=== PATIENT | female | born 1960 | race Caucasian/White ===

== ENCOUNTER 2020-12-05 09:52 | Outpatient (REF) | payer OTHER, SELFPAY | END 2020-12-05 09:53 | disposition home or self-care (01) | LOC: HO.LAB 09:52 | PROVIDERS: Visit Provider Internal Medicine | DX: Z20.822 Contact with and (suspected) exposure to COVID-19 (principal) | CPT/HCPCS: 36415; C9803; U0003; U0005 ==

== ENCOUNTER 2021-01-18 10:15 | Outpatient (REF) | payer OTHER, SELFPAY ==
--- NOTE | ~2021-01-18 | MM_ITS ---
EXAMINATION: MM SCREENING DIGITAL BREAST TOMOSYNTHESIS, BILATERAL CLINICAL INFORMATION: Screening. Asymptomatic. The lifetime risk of breast cancer based on the Tyrer-Cuzick Model is 9%. COMPARISON: Mammography: 11/04/2019, 10/29/2018, 10/02/2017 TECHNIQUE: Digital breast tomosynthesis is performed in both the craniocaudal and mediolateral oblique views along with computer-aided detection (CAD). Synthesized 2D images are generated from the tomosynthesis. FINDINGS: There are scattered areas of fibroglandular density (ACR BI-RADS breast composition Category b). Parenchymal pattern is similar to prior studies. There is stable smooth nodularity again noted medial left breast and 2 adjacent nodules mid outer right breast. There is no developing density or interval mass or architectural abnormality. No abnormal calcifications. The axilla and skin contours are unremarkable. MM/MM tomosynthesis screening BI IMPRESSION: No significant changes from prior exams. ASSESSMENT: BI-RADS 2: Benign RECOMMENDATION: Routine annual mammography screening. This patient's information was entered into a reminder system with a target due date for their next mammogram.
== END 2021-01-18 10:16 | disposition home or self-care (01) ==
LOC: HO.MAMMO 10:15
PROVIDERS: PCP Internal Medicine; Visit Provider Internal Medicine
DX: Z12.31 Encounter for screening mammogram for malignant neoplasm of breast (principal)
CPT/HCPCS: 77063; 77067

== ENCOUNTER 2021-07-26 11:05 | Outpatient (REF) | payer OTHER, SELFPAY ==
[2021-07-26 13:38] LABS: Estimated Average Glucose 123 mg/dL; Hemoglobin A1c % 5.9 %
[2021-07-28 10:27] LABS: Vitamin B12 417 pg/mL (200-900)
[2021-07-31 16:50] LABS: Vitamin D 25-OH, D2 <4 ng/mL; Vitamin D 25-OH, D3 27 ng/mL; Vitamin D 25-OH, Total 27 ng/mL (30-100)
== END 2021-07-26 11:06 | disposition home or self-care (01) ==
LOC: HO.HMGCLDS 11:05
PROVIDERS: PCP Internal Medicine; Visit Provider Physician Assistant
DX: M79.601 Pain in right arm (principal); M79.602 Pain in left arm; R20.2 Paresthesia of skin
CPT/HCPCS: 36415; 82306; 82607; 83036

== ENCOUNTER 2021-09-02 06:33 | Outpatient (REF) | payer OTHER, SELFPAY ==
[2021-09-02 11:35] LABS: Hematocrit 41.9 % (37.0-47.0); Hemoglobin 14.1 g/dl (12.0-16.0); Mean Corpuscular HGB Conc 33.7 g/dl (31.0-35.0); Mean Corpuscular Hemoglobin 29.4 pg (27.0-33.0); Mean Corpuscular Volume 87.5 fL (80.0-98.0); Mean Platelet Volume 10.5 fL (9.4-12.3); Platelet Count 292 X10*3/uL (160-400); Red Blood Count 4.79 X10*6/uL (4.20-5.50); Red Cell Distribution Width 13.3 % (11.0-16.0); White Blood Count 6.3 X10*3/uL (4.8-10.8)
[2021-09-02 11:41] LABS: Appearance Urine HAZY; Color Urine YELLOW; Glucose Urine UA NEG (NEG); Leukocyte Esterase Urine 2+ (NEG); Nitrite Urine NEG (NEG); Specific Gravity - Urine 1.015 (1.005-1.025); Urine Blood NEG (NEG); Urine Ketones NEG (NEG); Urine Protein NEG (NEG-TRACE)
[2021-09-02 12:00] LABS: Alanine Aminotransferase 19 U/L (0-31); Albumin Level 3.9 g/dL (3.5-5.0); Alkaline Phosphatase 107 U/L (39-117); Anion Gap 12 (12-20); Aspartate Amino Transferase 19 U/L (5-31); Bilirubin Total 0.4 mg/dL (0.0-1.0); Blood Urea Nitrogen 11 mg/dL (9-16); Calcium 9.3 mg/dL (8.4-10.2); Carbon Dioxide 28 mmol/L (22-29); Chloride 105 mmol/L (96-108); Cholesterol 191 mg/dL; Estimated Glomerular Filt Rate > 60; Glucose Fasting 127 mg/dL (60-99); HDL Cholesterol 63 mg/dL; LDL Cholesterol Calculated 108 mg/dl; Potassium 4.3 mmol/L (3.3-5.1); Sodium 141 mmol/L (135-145); Total Protein 6.7 g/dL (6.5-8.0); Triglycerides 100 mg/dL
[2021-09-02 12:09] LABS: Renal Epithelial Cells Urine 1+ /LPF; Squamous Epithelial Cell Urine 1+ /LPF
[2021-09-02 12:22] LABS: Thyroid Stimulating Hormone 2.43 uIU/mL (0.32-4.0)
== END 2021-09-02 06:34 | disposition home or self-care (01) ==
LOC: HO.HMGCLDS 06:33
PROVIDERS: PCP Internal Medicine; Visit Provider Internal Medicine
DX: Z00.00 Encounter for general adult medical examination without abnormal findings (principal); I10 Essential (primary) hypertension
CPT/HCPCS: 36415; 80053; 80061; 81001; 84443; 85027

== ENCOUNTER 2021-09-05 16:08 | Outpatient (REF) | payer OTHER, SELFPAY ==
[2021-09-11 01:47] LABS: HPV mRNA E6/E7 Not Detected (Not Detected)
== END 2021-09-05 16:09 | disposition home or self-care (01) ==
LOC: HO.LNP 16:08
PROVIDERS: Visit Provider Internal Medicine
DX: Z12.4 Encounter for screening for malignant neoplasm of cervix (principal); I10 Essential (primary) hypertension; R73.9 Hyperglycemia, unspecified
CPT/HCPCS: 87624; 88142

== ENCOUNTER 2022-01-24 09:49 | Outpatient (REF) | payer OTHER, SELFPAY ==
--- NOTE | ~2022-01-24 | MM_ITS ---
EXAMINATION: MM SCREENING DIGITAL BREAST TOMOSYNTHESIS, BILATERAL CLINICAL INFORMATION: Screening. Asymptomatic. The lifetime risk of breast cancer based on the Tyrer-Cuzick Model is 6%. COMPARISON: Mammography: 01/18/2021, 11/04/2019, 10/29/2018 TECHNIQUE: Digital breast tomosynthesis is performed in both the craniocaudal and mediolateral oblique views along with computer-aided detection (CAD). Synthesized 2D images are generated from the tomosynthesis. FINDINGS: There are scattered areas of fibroglandular density (ACR BI-RADS breast composition Category b). Left breast has small stable nodular asymmetry mid inner breast on CC view. Right breast has a stable oval nodule central mid 9:00 position. Neither breast shows interval mass or architectural abnormality or developing density. No abnormal calcifications. The axilla and skin contours are unremarkable. MM/MM tomosynthesis screening BI IMPRESSION: No significant change from prior exams. ASSESSMENT: BI-RADS 2: Benign RECOMMENDATION: Routine annual mammography screening. This patient's information was entered into a reminder system with a target due date for their next mammogram.
== END 2022-01-24 09:50 | disposition home or self-care (01) ==
LOC: HO.MAMMO 09:49
PROVIDERS: Visit Provider Internal Medicine
DX: Z12.31 Encounter for screening mammogram for malignant neoplasm of breast (principal)
CPT/HCPCS: 77063; 77067

== ENCOUNTER 2022-02-27 11:26 | Outpatient (REF) | payer OTHER, SELFPAY ==
[2022-03-01 11:21] LABS: H Pylori Breath Test Positive (Negative)
== END 2022-02-27 11:27 | disposition home or self-care (01) ==
LOC: HO.LNP 11:26
PROVIDERS: PCP Internal Medicine; Visit Provider Nurse Practitioner Family
DX: K21.9 Gastro-esophageal reflux disease without esophagitis (principal); R14.0 Abdominal distension (gaseous); K59.01 Slow transit constipation; K64.9 Unspecified hemorrhoids; Z12.11 Encounter for screening for malignant neoplasm of colon; Z11.0 Encounter for screening for intestinal infectious diseases
CPT/HCPCS: 83013; 99202

== ENCOUNTER 2022-05-23 08:11 | Outpatient (REF) | payer OTHER, SELFPAY ==
[2022-05-23 11:04] LABS: Hematocrit 44.1 % (37.0-47.0); Hemoglobin 14.9 g/dl (12.0-16.0); Mean Corpuscular HGB Conc 33.8 g/dl (31.0-35.0); Mean Corpuscular Hemoglobin 29.5 pg (27.0-33.0); Mean Corpuscular Volume 87.3 fL (80.0-98.0); Mean Platelet Volume 12.1 fL (9.4-12.3); Platelet Count 162 X10*3/uL (160-400); Red Blood Count 5.05 X10*6/uL (4.20-5.50); Red Cell Distribution Width 13.3 % (11.0-16.0); White Blood Count 6.2 X10*3/uL (4.8-10.8)
[2022-05-23 11:16] LABS: Estimated Average Glucose 128 mg/dL; Hemoglobin A1c % 6.1 %
[2022-05-23 11:22] LABS: Alanine Aminotransferase 22 U/L (0-31); Albumin Level 4.1 g/dL (3.5-5.0); Alkaline Phosphatase 114 U/L (39-117); Anion Gap 11 (12-20); Aspartate Amino Transferase 19 U/L (5-31); Bilirubin Total 0.3 mg/dL (0.0-1.0); Blood Urea Nitrogen 12 mg/dL (9-16); Calcium 9.1 mg/dL (8.4-10.2); Carbon Dioxide 26 mmol/L (22-29); Chloride 105 mmol/L (96-108); Cholesterol 204 mg/dL; Estimated Glomerular Filt Rate > 60; Glucose Fasting 118 mg/dL (60-99); HDL Cholesterol 63 mg/dL; LDL Cholesterol Calculated 126 mg/dl; Potassium 4.4 mmol/L (3.3-5.1); Sodium 138 mmol/L (135-145); Total Protein 7.2 g/dL (6.5-8.0); Triglycerides 76 mg/dL
[2022-05-23 11:44] LABS: TSH reflex Free T4 1.05 uIU/mL (0.32-4.0)
[2022-05-23 11:45] LABS: Creatinine Urine 76.78 mg/dL; Microalbum/Creatinine Ratio Ur 6.5 ug/mg cr
== END 2022-05-23 08:12 | disposition home or self-care (01) ==
LOC: HO.HMGCLDS 08:11
PROVIDERS: PCP Internal Medicine; Visit Provider Internal Medicine
DX: Z00.00 Encounter for general adult medical examination without abnormal findings (principal); R73.9 Hyperglycemia, unspecified; I10 Essential (primary) hypertension
CPT/HCPCS: 36415; 80053; 80061; 82043; 83036; 84443; 85027

== ENCOUNTER 2022-08-18 09:44 | Outpatient (REF) | payer OTHER, SELFPAY ==
[2022-08-21 00:23] LABS: TS Negative Control Passed; TS Panel A 0; TS Panel B 0; TS Positive Control Passed; TSpotTB Negative (Negative)
== END 2022-08-18 09:45 | disposition home or self-care (01) ==
LOC: HO.HMGCLDS 09:44
PROVIDERS: PCP Internal Medicine; Visit Provider Internal Medicine
DX: Z11.1 Encounter for screening for respiratory tuberculosis (principal)
CPT/HCPCS: 36415; 86481

== ENCOUNTER 2022-08-27 14:54 | Outpatient (REF) | payer OTHER, SELFPAY ==
--- NOTE | ~2022-08-27 | XR_ITS ---
EXAMINATION: LUMBAR SPINE AND BILATERAL HIPS CLINICAL INFORMATION: Low back pain. COMPARISON: None. TECHNIQUE: Two views of the right and left hips. Three views of the lumbosacral spine. FINDINGS: LUMBOSACRAL SPINE: There are 5 [id number] lumbar vertebra. No acute fracture, spondylolisthesis, or spondylolysis is identified. There is mild marginal spurring seen at multiple levels. The disc spaces are generally maintained. There is some sclerosis about the sacroiliac joints bilaterally but without evidence of widening or fusion. Pedicles intact. No destructive bony lesions seen. There is some mild facet arthropathy seen at the L5-S1 level bilaterally. Two views of the right hip do not demonstrate any evidence of acute fracture or dislocation. There is some mild narrowing of the inferior joint space with some mild collar spurring being present. There is some spurring about the greater trochanter. No femoral head collapse or destructive bony lesion appreciated. Two views of the left hip do not demonstrate any evidence of acute fracture or dislocation. There is some mild collar spurring present. Minimal inferior joint space narrowing. There is some mild spurring about the greater trochanter. No destructive bony lesions are appreciated. Bone island is seen within the proximal left femoral shaft. XR/XR lumbar spine 2-3V IMPRESSION: Mild degenerative change of the lumbar spine without evidence of acute fracture, spondylolisthesis or spondylolysis. Mild degenerative changes of both hips.
--- NOTE | ~2022-08-27 | XR_ITS ---
EXAMINATION: LUMBAR SPINE AND BILATERAL HIPS CLINICAL INFORMATION: Low back pain. COMPARISON: None. TECHNIQUE: Two views of the right and left hips. Three views of the lumbosacral spine. FINDINGS: LUMBOSACRAL SPINE: There are 5 [id number] lumbar vertebra. No acute fracture, spondylolisthesis, or spondylolysis is identified. There is mild marginal spurring seen at multiple levels. The disc spaces are generally maintained. There is some sclerosis about the sacroiliac joints bilaterally but without evidence of widening or fusion. Pedicles intact. No destructive bony lesions seen. There is some mild facet arthropathy seen at the L5-S1 level bilaterally. Two views of the right hip do not demonstrate any evidence of acute fracture or dislocation. There is some mild narrowing of the inferior joint space with some mild collar spurring being present. There is some spurring about the greater trochanter. No femoral head collapse or destructive bony lesion appreciated. Two views of the left hip do not demonstrate any evidence of acute fracture or dislocation. There is some mild collar spurring present. Minimal inferior joint space narrowing. There is some mild spurring about the greater trochanter. No destructive bony lesions are appreciated. Bone island is seen within the proximal left femoral shaft. XR/XR hips REGINE min 3V IMPRESSION: Mild degenerative change of the lumbar spine without evidence of acute fracture, spondylolisthesis or spondylolysis. Mild degenerative changes of both hips.
== END 2022-08-27 14:55 | disposition home or self-care (01) ==
LOC: HO.HMGCX 14:54
PROVIDERS: PCP Internal Medicine; Visit Provider Internal Medicine
DX: M54.50 Low back pain, unspecified (principal)
CPT/HCPCS: 72100; 73522

== ENCOUNTER 2022-11-14 10:25 | Outpatient (REF) | payer OTHER, SELFPAY ==
[2022-11-14 11:09] LABS: MANUAL DIFF FLAG NO
[2022-11-14 11:15] LABS: Basophils Absolute Auto 0.1 X10*3/uL (0.0-0.2); Basophils Percent Auto 1.4 % (0-2); Eosinophils Absolute Auto 0.3 X10*3/uL (0.0-0.4); Eosinophils Percent Auto 4.4 % (0-4); Hematocrit 42.5 % (37.0-47.0); Hemoglobin 14.1 g/dl (12.0-16.0); Imm Gran Abs Auto 0.02 X10*3/uL (0.00-0.03); Imm Gran Pct Auto 0.3 % (0.0-0.4); Lymphocytes Absolute Auto 2.2 X10*3/uL (1.2-4.9); Lymphocytes Percent Auto 33.3 % (20-40); Mean Corpuscular HGB Conc 33.2 g/dl (31.0-35.0); Mean Corpuscular Hemoglobin 29.1 pg (27.0-33.0); Mean Corpuscular Volume 87.8 fL (80.0-98.0); Mean Platelet Volume 9.8 fL (9.4-12.3); Monocytes Absolute Auto 0.6 X10*3/uL (0.1-1.2); Monocytes Percent Auto 9.2 % (2-11); Neutrophils Absolute Auto 3.4 x10*3/uL (2.0-8.3); Neutrophils Percent Auto 51.4 % (45-73); Platelet Count 286 X10*3/uL (160-400); Red Blood Count 4.84 X10*6/uL (4.20-5.50); Red Cell Distribution Width 12.9 % (11.0-16.0); White Blood Count 6.5 X10*3/uL (4.8-10.8)
[2022-11-14 11:31] LABS: Estimated Average Glucose 131 mg/dL; Hemoglobin A1c % 6.2 %
[2022-11-14 12:47] LABS: Alanine Aminotransferase 23 U/L (0-31); Alkaline Phosphatase 114 U/L (39-117); Anion Gap 9 (12-20); Aspartate Amino Transferase 20 U/L (5-31); Bilirubin Total 0.4 mg/dL (0.0-1.0); Blood Urea Nitrogen 15 mg/dL (9-16); Calcium 9.4 mg/dL (8.4-10.2); Carbon Dioxide 31 mmol/L (22-29); Chloride 105 mmol/L (96-108); Cholesterol 204 mg/dL; Estimated Glomerular Filt Rate > 60; Glucose Fasting 107 mg/dL (60-99); HDL Cholesterol 69 mg/dL; LDL Cholesterol Calculated 118 mg/dl; Potassium 4.7 mmol/L (3.3-5.1); Sodium 140 mmol/L (135-145); Total Protein 6.9 g/dL (6.5-8.0); Triglycerides 85 mg/dL
[2022-11-14 13:54] LABS: Microalbum/Creatinine Ratio Ur 10.3 ug/mg cr
== END 2022-11-14 10:26 | disposition home or self-care (01) ==
LOC: HO.HMGCLDS 10:25
PROVIDERS: PCP Internal Medicine; Visit Provider Internal Medicine
DX: R73.9 Hyperglycemia, unspecified (principal)
CPT/HCPCS: 36415; 80053; 80061; 82043; 83036; 85025

== ENCOUNTER 2023-11-18 12:39 | Outpatient (AMB) | payer OTHER, SELFPAY ==
[2023-11-18 12:48] VITALS: BP 125/80; PULSE 65; O2SAT 98; BMI 38.3
--- NOTE | 2023-11-18 12:48 | MHC.PC.OV ---
Vital Signs 11/18/23 12:48 Height 5 ft 3 in Weight 216 lb BMI 38.3 BP 125/80 Blood Pressure Location Lt brachial Position Sitting Pulse 65 Pulse Source Pulse Oximeter Pulse Oximetry (%) 98 Oxygen Delivery Method Room Air Intake Visit Reasons: right arm pain Intake Note: Pt is [place] today for a sick visit. Pt c/o R shoulder pain that goes down her arm.. Allergies morphine Allergy (Unknown, Verified 11/18/23 12:49) Hives penicillin G Allergy (Unknown, Verified 11/18/23 12:49) Hives IV dye Allergy (Unknown, Uncoded 11/18/23 12:49) swelling Medication List - Last Reconciled 11/18/23 by Rakel Bojorquez MD albuterol sulfate 90 mcg/actuation 2 puffs inhalation Q6H bisacodyl (Dulcolax (bisacodyl)) 10 mg (2 x 5 mg) PO ONCE 1 day bismuth subsalicylate 2 tabs PO QID 14 days docusate sodium 100 mg PO BEDTIME hydrocortisone 2.5% (Proctosol HC) 1 appl DE BID-QID PRN losartan 100 mg PO DAILY methylcellulose (laxative) (Citrucel) 500 mg PO DAILY polyethylene glycol 3350 (Miralax) 238 grams PO ONCE Tobacco use date assessed: 11/18/23 Dental Screening Dental Screen Date: 11/18/23 Did you have a dental visit in the last 12 months?: Yes Did you have a dental problem in the last 6 months where you did not have access to dental care?: No Was dental information given to patient?: Patient has dentist HPI right arm pain HPI Details Pt presents for physical she complains of chronic ( for a few years) R shoulder pain getting worse for 2 months. She had an injury many years ago. The pain is worse when patient is trying to reach overheard or lift heavier objects. Hypertension is controlled on losartan. [facility] Medical History Hyperglycemia Lower back pain Paresthesia and pain of both upper extremities Normal Pap smear Mammogram normal Varicose veins of both lower extremities Annual physical exam Normal colonoscopy Asthma HTN (hypertension) Varicosities of leg Surgical History Hx of colonoscopy History of bilateral tubal ligation Hx of cholecystectomy Family History Father Afib HTN (hypertension) History of heart attack Hyperlipidemia Arthritis Mother Lung cancer Son No problems noted. Son No problems noted. Daughter No problems noted. Daughter No problems noted. Social History Housing: Apartment Alcohol intake: never Patient Tobacco Use Status: Never used Tobacco e-Cigarette/Vaping Use: Never Used Current occupational status: employed Cognitive needs: No Hearing needs: No Vision needs: Yes Questionnaire PHQ-9 Over the last 2 weeks, how often have you been bothered by any of the following problems? 1. Little interest or pleasure in doing things: not at all 2. Feeling down, depressed, or hopeless: not at all 3. Trouble falling or staying asleep, or sleeping too much: not at all 4. Feeling tired or having little energy: several days 5. Poor appetite or overeating: not at all 6. Feeling bad about yourself - or that you are a failure or have let yourself or your family down: not at all 7. Trouble concentrating on things, such as reading the newspaper or watching television: not at all 8. Moving or speaking so slowly that other people could have noticed. Or the opposite - being so fidgety or restless that you have been moving around a lot more than usual: not at all 9. Thoughts that you would be better off or of hurting yourself in some way: not at all Total score: 1 Depression Screening Interpretation: Negative Depression Screening Done: Yes Source: Developed by Drs. Kevin Lim, Geno Christopher, Donnell Yao and colleagues, with an educational cherri from [employer]. Thrive Questionnaire Date Thrive assessed: 11/18/23 I am a: Patient What is your living situation today?: I have a steady place to live Within the past 12 months, did the food you bought not last and you didn't have the money to get more?: Never true Within the past 12 months, did you worry whether your food would run out before you got money to buy more?: Never true Do you have trouble paying for medicines?: No Do you have trouble getting transportation to medical appointments?: No Do you have trouble paying your heating and electricity bill?: No Do you have trouble taking care of your child, family member or friend?: No Do you have trouble with day-to-day activities such as bathing, preparing meals, shopping, managing finances, etc.?: No Are you currently unemployed and looking for a job?: No Are you interested in more education?: No Please select the resources that you would like help with: None AUDIT C Alcohol Use Questionnaire (AUDIT-C) 1. How often do you have a drink containing alcohol?: Never 3. How often do you have six or more drinks on one occasion?: Never Total Score: 0 YANY-7 AMB Questionnaire YANY-7 Date YANY - 7 assessed: 11/18/23 Feeling nervous, anxious, or on edge: 0 = Not at all Not being able to stop or control worryin = Not at all Worrying too much about different things: 0 = Not at all Trouble relaxin = Not at all Being so restless that it is hard to sit still: 0 = Not at all Becoming easily annoyed or irritable: 0 = Not at all Feeling afraid as if something awful might happen: 0 = Not at all Total YANY-7 score (0-4 normal; 5-9 mild; 10-14 moderate; 15-21 severe): 0 Source: Developed by Drs. Kevin Lim, Geno Christopher, Donnell Yao and colleagues, with an educational cherri from [employer]. Review of Systems Const All systems reviewed & are unremarkable except as noted in HPI and below Reports no additional complaints Eyes Reports no additional complaints ENT Reports no additional complaints Card Reports no additional complaints Resp Reports no additional complaints GI Reports no additional complaints Reports no additional complaints Physical exam (Primary Care) Vital Signs: Last Vital Signs Pulse 65 11/18/23 12:48 BP 140/80 H 11/18/23 12:48 Pulse Ox 98 11/18/23 12:48 Oxygen Delivery Method Room Air 11/18/23 12:48 BMI result Body Mass Index 38.3 Tobacco/Smoking Status: Tobacco use Status Tobacco use date assessed 11/18/23 11/18/23 12:49 Patient Tobacco Use Status Never used Tobacco 11/18/23 12:49 e-Cigarette/Vaping Use Never Used 11/18/23 12:48 PHQ-9: PHQ-9 Score PHQ-9: Total score 1 11/18/23 14:55 Depression Screening Interpretation: Negative Thrive Assessment: Date of Thrive Assessment Date Thrive assessed 11/18/23 11/18/23 13:05 Const General: no acute distress HENMT Head: Yes normal to inspection Ears: hearing grossly normal bilaterally General nose exam: Normal external nose present Mouth: Normal oral and palatal mucosa present Throat: Yes posterior oropharynx normal Eyes General: appearance normal, both eyes and all related structures Neck Neck: Yes no lymphadenopathy and Yes supple Resp Effort & Inspection: normal respiratory effort Auscultation: clear to auscultation bilaterally Cardio Rhythm: regular rhythm Heart sounds: S1 normal heart sound present and S2 normal heart sound present GI Inspection: Yes normal to inspection Palpation (GI): Soft to palpation Percussion: Yes normal to percussion Auscultation: normal bowel sounds Extrem Other: This is a decreased range of motion of the right shoulder, anterior and supraspinatus tenderness, General: Yes no clubbing, cyanosis or edema Assessment and Plan Assessment & Plan (1) Right shoulder pain: Code(s): M25.511 - Pain in right shoulder Plan: For chronic shoulder pain x-ray and MRI to rule out supraspinatus tendon tear will be obtained. patient was given home essua-li-ffjosj exercises until results of the MRIs available. She will be referred to orthopedic surgeon (2) Rotator cuff arthropathy of right shoulder: Code(s): M12.811 - Other specific arthropathies, not elsewhere classified, right shoulder (3) HTN (hypertension): Code(s): I10 - Essential (primary) hypertension Plan: Continue losartan (4) Annual physical exam: Code(s): Z00.00 - Encounter for general adult medical examination without abnormal findings Plan: Well-balanced diet regular exercise discussed with the patient mammogram will be scheduled patient will call GI to schedule colonoscopy. (5) Hyperglycemia: Code(s): R73.9 - Hyperglycemia, unspecified Plan: ADA diet increase exercise weight loss discussed with the patient return for fasting blood work Orders: Orders XR shoulder RT min 2V Today M25.511 - Pain in right shoulder Complete Blood Count Auto Diff Today I10 - Essential (primary) hypertension, R73.9 - Hyperglycemia, unspecified, Z00.00 - Encounter for general adult medical examination without abnormal findings Hemoglobin A1c Today I10 - Essential (primary) hypertension, R73.9 - Hyperglycemia, unspecified, Z00.00 - Encounter for general adult medical examination without abnormal findings Lipid Panel Today I10 - Essential (primary) hypertension, R73.9 - Hyperglycemia, unspecified, Z00.00 - Encounter for general adult medical examination without abnormal findings Comprehensive Wilcox. Panel Fast Today I10 - Essential (primary) hypertension, R73.9 - Hyperglycemia, unspecified, Z00.00 - Encounter for general adult medical examination without abnormal findings Microalbumin, Random (w Creat) Today I10 - Essential (primary) hypertension, R73.9 - Hyperglycemia, unspecified, Z00.00 - Encounter for general adult medical examination without abnormal findings MR shoulder RT wo con Today I10 - Essential (primary) hypertension, M12.811 - Other specific arthropathies, not elsewhere classified, right shoulder, R73.9 - Hyperglycemia, unspecified, Z00.00 - Encounter for general adult medical examination without abnormal findings MM screening mammo BI Today I10 - Essential (primary) hypertension, R73.9 - Hyperglycemia, unspecified, Z00.00 - Encounter for general adult medical examination without abnormal findings, Z12.31 - Encounter for screening mammogram for malignant neoplasm of breast Referrals Orthopedics Referral M25.511 - Pain in right shoulder Medications: Refilled albuterol sulfate 90 mcg/actuation 2 puffs inhalation Q6H 18 grams 5RF losartan 100 mg PO DAILY 90 tabs 3RF Coding Level of Care Code Est Pt Prev Care 40-64y(98630) Diagnoses Right shoulder pain M25.511 Rotator cuff arthropathy of right shoulder M12.811 HTN (hypertension) I10 Annual physical exam Z00.00 Hyperglycemia R73.9
== END 2023-11-18 14:59 | disposition home or self-care (01) ==
PROVIDERS: PCP Internal Medicine; Visit Provider Internal Medicine
DX: Z00.00 Encounter for general adult medical examination without abnormal findings (principal); M25.511 Pain in right shoulder; M12.811 Other specific arthropathies, not elsewhere classified, right shoulder; I10 Essential (primary) hypertension; R73.9 Hyperglycemia, unspecified
CPT/HCPCS: 99396

== ENCOUNTER 2023-11-18 13:48 | Outpatient (REF) | payer OTHER, SELFPAY ==
--- NOTE | ~2023-11-18 | XR_ITS ---
EXAMINATION: XR SHOULDER, RIGHT CLINICAL INFORMATION: Pain. COMPARISON: None available. TECHNIQUE: Four views of the right shoulder. FINDINGS: Deformity along the superolateral aspect of the humeral head might represent sequela of a Hill-Sachs injury. No subluxation. 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 Visualized right-sided ribs and right lung are within normal limits. XR/XR shoulder RT min 2V IMPRESSION: 1. Deformity along the superolateral aspect of the humeral head might represent sequela of a Hill-Sachs injury. 2. 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
== END 2023-11-18 13:49 | disposition home or self-care (01) ==
LOC: HO.HMGCX 13:48
PROVIDERS: PCP Internal Medicine; Visit Provider Internal Medicine
DX: M25.511 Pain in right shoulder (principal)
CPT/HCPCS: 73030

== ENCOUNTER 2023-11-20 07:14 | Outpatient (REF) | payer OTHER, SELFPAY ==
[2023-11-20 11:29] LABS: MANUAL DIFF FLAG NO
[2023-11-20 11:42] LABS: Basophils Absolute Auto 0.1 X10*3/uL (0.0-0.2); Basophils Percent Auto 1.1 % (0-2); Eosinophils Absolute Auto 0.3 X10*3/uL (0.0-0.4); Eosinophils Percent Auto 4.8 % (0-4); Hematocrit 43.6 % (37.0-47.0); Hemoglobin 14.7 g/dl (12.0-16.0); Imm Gran Abs Auto 0.02 X10*3/uL (0.00-0.03); Imm Gran Pct Auto 0.3 % (0.0-0.4); Lymphocytes Absolute Auto 2.3 X10*3/uL (1.2-4.9); Mean Corpuscular HGB Conc 33.7 g/dl (31.0-35.0); Mean Corpuscular Hemoglobin 29.1 pg (27.0-33.0); Mean Corpuscular Volume 86.3 fL (80.0-98.0); Mean Platelet Volume 10.2 fL (9.4-12.3); Monocytes Absolute Auto 0.5 X10*3/uL (0.1-1.2); Monocytes Percent Auto 8.7 % (2-11); Neutrophils Percent Auto 48.1 % (45-73); Platelet Count 289 X10*3/uL (160-400); Red Blood Count 5.05 X10*6/uL (4.20-5.50); Red Cell Distribution Width 13.2 % (11.0-16.0); White Blood Count 6.2 X10*3/uL (4.8-10.8)
[2023-11-20 11:46] LABS: Estimated Average Glucose 126 mg/dL
[2023-11-20 11:52] LABS: Alanine Aminotransferase 18 U/L (0-31); Albumin Level 3.9 g/dL (3.5-5.0); Alkaline Phosphatase 117 U/L (39-117); Anion Gap 10 (12-20); Aspartate Amino Transferase 19 U/L (5-31); Bilirubin Total 0.5 mg/dL (0.0-1.0); Blood Urea Nitrogen 13 mg/dL (9-16); Calcium 9.5 mg/dL (8.4-10.2); Carbon Dioxide 27 mmol/L (22-29); Chloride 107 mmol/L (96-108); Cholesterol 196 mg/dL (<200); Estimated Glomerular Filt Rate > 60; Glucose Fasting 126 mg/dL (60-99); HDL Cholesterol 70 mg/dL (>40); LDL Cholesterol Calculated 107 mg/dL (<100); Potassium 3.8 mmol/L (3.3-5.1); Sodium 140 mmol/L (135-145); Total Protein 7.5 g/dL (6.5-8.0); Triglycerides 98 mg/dL (<150)
[2023-11-20 11:59] LABS: Creatinine Urine 126.55 mg/dL; Microalbum/Creatinine Ratio Ur 24.4 ug/mg cr (<30)
== END 2023-11-20 07:15 | disposition home or self-care (01) ==
LOC: HO.HMGCLDS 07:14
PROVIDERS: PCP Internal Medicine; Visit Provider Internal Medicine
DX: Z00.00 Encounter for general adult medical examination without abnormal findings (principal); I10 Essential (primary) hypertension; R73.9 Hyperglycemia, unspecified
CPT/HCPCS: 36415; 80053; 80061; 82043; 82570; 83036; 85025

== ENCOUNTER 2023-12-09 09:39 | Outpatient (AMB) | payer OTHER, SELFPAY ==
[2023-12-09 09:43] VITALS: BMI 38.3
--- NOTE | 2023-12-09 09:43 | A.OFFVIS_ITS ---
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 PCP gave at home exercises. Patient reports that she has had pain in the right shoulder for about 2 years now. Denies injury, numbness and tingling. She takes tylenol and ibuprofen for her pain which only helps temporarily. 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 She complains of pain with daily activity, which has been present for ~2 years now. She denies any prior treatment, has been performing at-home exercises, and finds limited relief from Ibuprofen & Tylenol. [facility] Medical History Hyperglycemia Lower back pain Paresthesia and pain of both upper extremities Normal Pap smear Mammogram normal Varicose veins of both lower extremities Annual physical exam Normal colonoscopy Asthma HTN (hypertension) Varicosities of leg Surgical History Hx of colonoscopy History of bilateral tubal ligation Hx of cholecystectomy Family History Father Afib HTN (hypertension) History of heart attack Hyperlipidemia Arthritis Mother Lung cancer Son No problems noted. Son No problems noted. Daughter No problems noted. Daughter No problems noted. Social History Housing: Apartment Alcohol intake: never Patient Tobacco Use Status: Never used Tobacco e-Cigarette/Vaping Use: Never Used Current occupational status: employed Cognitive needs: No Hearing needs: No Vision needs: Yes Review of Systems Const All systems reviewed & are unremarkable except as noted in HPI and below Physical Exam Vital Signs: BMI result Body Mass Index 38.3 Const General: no acute distress, alert and awake Orientation/consciousness: patient oriented x3 HEENT Head: Yes normocephalic and Yes atraumatic Eyes EOM: EOMs intact bilaterally Resp Effort & Inspection: normal respiratory effort and able to speak in complete sentences Cardio Jugular venous distension: no JVD Skin General skin exam: turgor normal Rashes: no rashes Neuro General: patient oriented x3 Extrem Other: 30/70/120/S1 +h/n 4+/5 EC Psych Appearance: grossly normal Affect: normal affect Attitude: cooperative Results Reviewed Results Reviewed: I personally reviewed relevant radiographs. AC joint OA ? [facility] Assessment & Plan Assessment & Plan (1) Rotator cuff arthropathy of right shoulder: Code(s): M12.811 - Other specific arthropathies, not elsewhere classified, right shoulder Plan: Has done PT and now with continued pain pool at night and with overhead activity. RTC not functioning properly. MRI to assess Plan Prepared for Roger Lopez MD by Neel Noguera, medical biller/coder, on 12/09/23 at 9:48 AM, EST. Orders: Orders PT Evaluation and Treatment Today M25.511 - Pain in right shoulder MR shoulder RT wo con Today M12.811 - Other specific arthropathies, not elsewhere classified, right shoulder Coding Level of Care Code New Pt Level 4 (78649) Diagnoses Rotator cuff arthropathy of right shoulder M12.811
== END 2023-12-09 11:02 | disposition home or self-care (01) ==
PROVIDERS: PCP Internal Medicine; Visit Provider Orthopaedic Surgery
DX: M12.811 Other specific arthropathies, not elsewhere classified, right shoulder (principal)
CPT/HCPCS: 99203

== ENCOUNTER → 2023-12-09 09:39 | Outpatient (BNVA) | payer OTHER, SELFPAY | PROVIDERS: PCP Internal Medicine; Visit Provider Orthopaedic Surgery | DX: M12.811 Other specific arthropathies, not elsewhere classified, right shoulder (principal) | CPT/HCPCS: 99202 ==

== ENCOUNTER 2023-12-31 18:43 | Outpatient (REF) | payer OTHER, SELFPAY ==
--- NOTE | ~2023-12-31 | MR_ITS ---
EXAMINATION: MR SHOULDER WITHOUT CONTRAST, RIGHT CLINICAL INFORMATION: Arthropathy not specified. Patient reports pain, limited range of motion. COMPARISON: None available. TECHNIQUE: MRI of the shoulder without contrast was performed on a high-field scanner. FINDINGS: ROTATOR CUFF: Mild supraspinatus and infraspinatus tendinosis. No focal tear is seen. Teres minor is intact. Mild subscapularis tendinosis. No muscle atrophy or fatty infiltration. BICEPS: Intact. CORACOACROMIAL ARCH: The undersurface of the acromion is flat with no subacromial spur. Mild acromioclavicular arthritis. Trace subacromial-subdeltoid bursitis. LABRUM/CAPSULE: Increased T2 signal anteroinferior labrum from degeneration plus/minus tear. Intact inferior capsule. GLENOHUMERAL JOINT/MARROW: No fracture. No aggressive marrow-replacing lesion. Small effusion. No axillary lymphadenopathy. MR/MR shoulder RT wo con IMPRESSION: 1. Mild supraspinatus, infraspinatus and subscapularis tendinosis. No focal rotator cuff tear is seen. 2. Anteroinferior labral degeneration plus/minus tear. 3. Mild acromioclavicular arthritis. Trace subacromial subdeltoid bursitis. 4. Small glenohumeral joint effusion.
== END 2023-12-31 18:44 | disposition home or self-care (01) ==
LOC: HO.MRI 18:43
PROVIDERS: PCP Internal Medicine; Visit Provider Orthopaedic Surgery
DX: M12.811 Other specific arthropathies, not elsewhere classified, right shoulder (principal)
CPT/HCPCS: 73221

== ENCOUNTER 2024-01-31 15:00 | Outpatient (AMB) | payer OTHER, SELFPAY ==
[2024-01-31 15:09] VITALS: BMI 38.3
--- NOTE | 2024-01-31 15:09 | A.OFFVIS_ITS ---
Intake Intake Visit Reasons: ov-rt shoulder mri review Intake Note: MR/MR shoulder RT wo con IMPRESSION: 1. Mild supraspinatus, infraspinatus and subscapularis tendinosis. No focal rotator cuff tear is seen. 2. Anteroinferior labral degeneration plus/minus tear. 3. Mild acromioclavicular arthritis. Trace subacromial subdeltoid bursitis. 4. Small glenohumeral joint effusion. Allergies morphine Allergy (Unknown, Verified 12/09/23 09:46) Hives penicillin G Allergy (Unknown, Verified 12/09/23 09:46) Hives IV dye Allergy (Unknown, Uncoded 12/09/23 09:46) swelling [facility] Medical History Hyperglycemia Lower back pain Paresthesia and pain of both upper extremities Normal Pap smear Mammogram normal Varicose veins of both lower extremities Annual physical exam Normal colonoscopy Asthma HTN (hypertension) Varicosities of leg Surgical History Hx of colonoscopy History of bilateral tubal ligation Hx of cholecystectomy Family History Father Afib HTN (hypertension) History of heart attack Hyperlipidemia Arthritis Mother Lung cancer Son No problems noted. Son No problems noted. Daughter No problems noted. Daughter No problems noted. Social History Housing: Apartment Alcohol intake: never Patient Tobacco Use Status: Never used Tobacco e-Cigarette/Vaping Use: Never Used Current occupational status: employed Cognitive needs: No Hearing needs: No Vision needs: Yes Coding
--- NOTE | 2024-01-31 15:09 | MHC.OFFVIS ---
Intake Vital Signs 01/31/24 15:09 Height 5 ft 3 in Weight 216 lb BMI 38.3 Intake Visit Reasons: ov-rt shoulder mri review Intake Note: Lesly is a 63 year old right hand dominate female who presents today for a MRI review of her right shoulder. Patient reports her symptoms have improved up until yesterday. She is experiencing more pain while lifting and raising her arms above her head. Accompanied by: Spouse Allergies morphine Allergy (Unknown, Verified 01/31/24 15:23) Hives penicillin G Allergy (Unknown, Verified 01/31/24 15:23) Hives IV dye Allergy (Unknown, Uncoded 12/09/23 09:46) swelling HPI ov-rt shoulder mri review HPI Details Lesly is a 63 year old right hand dominate female who presents today for a MRI review of her right shoulder. Patient reports her symptoms have improved up until yesterday. She is experiencing more pain while lifting and raising her arms above her head. [facility] Medical History Hyperglycemia Lower back pain Paresthesia and pain of both upper extremities Normal Pap smear Mammogram normal Varicose veins of both lower extremities Annual physical exam Normal colonoscopy Asthma HTN (hypertension) Varicosities of leg Surgical History Hx of colonoscopy History of bilateral tubal ligation Hx of cholecystectomy Family History Father Afib HTN (hypertension) History of heart attack Hyperlipidemia Arthritis Mother Lung cancer Son No problems noted. Son No problems noted. Daughter No problems noted. Daughter No problems noted. Social History Housing: Apartment Alcohol intake: never Patient Tobacco Use Status: Never used Tobacco e-Cigarette/Vaping Use: Never Used Current occupational status: employed Cognitive needs: No Hearing needs: No Vision needs: Yes Physical Exam Vital Signs: BMI result Body Mass Index 38.3 Extrem Other: Mildly positive Grigsby and Neer Negative empty can 45/90/130/L5 Results Reviewed Results Reviewed: I personally reviewed the MR images. 1. Mild supraspinatus, infraspinatus and subscapularis tendinosis. No focal rotator cuff tear is seen. 2. Anteroinferior labral degeneration plus/minus tear. 3. Mild acromioclavicular arthritis. Trace subacromial subdeltoid bursitis. 4. Small glenohumeral joint effusion. Assessment & Plan Assessment & Plan (1) Rotator cuff tendinitis: Code(s): M75.80 - Other shoulder lesions, unspecified shoulder Plan: I reviewed MRI and at this point, I do not recommend intervention. Discussed therapy and injections but at this point she will let me know if she gets worse. Coding Level of Care Code Est Pt Level 3 (36127) Diagnoses Rotator cuff tendinitis M75.80
== END 2024-01-31 15:37 | disposition home or self-care (01) ==
LOC: HO.HOS 15:00
PROVIDERS: PCP Internal Medicine; Visit Provider Orthopaedic Surgery
DX: M75.80 Other shoulder lesions, unspecified shoulder (principal)
CPT/HCPCS: 99213

== ENCOUNTER → 2024-01-31 15:00 | Outpatient (BNVA) | payer OTHER, SELFPAY | PROVIDERS: PCP Internal Medicine; Visit Provider Orthopaedic Surgery | DX: M75.81 Other shoulder lesions, right shoulder (principal) | CPT/HCPCS: 99212 ==

== ENCOUNTER 2024-03-18 09:37 | Outpatient (REF) | payer OTHER, SELFPAY | END 2024-03-18 09:38 | disposition home or self-care (01) | LOC: HO.MAMMO 09:37 | PROVIDERS: PCP Internal Medicine; Visit Provider Internal Medicine | DX: Z12.31 Encounter for screening mammogram for malignant neoplasm of breast (principal) | CPT/HCPCS: 77063; 77067 ==

== ENCOUNTER → 2024-03-18 10:00 | Outpatient (BNV) | payer SELFPAY | PROVIDERS: PCP Internal Medicine; Visit Provider Radiology Diagnostic Radiology | DX: Z12.31 Encounter for screening mammogram for malignant neoplasm of breast (principal) | CPT/HCPCS: 77063; 77067 ==

== ENCOUNTER 2024-12-05 12:33 | Outpatient (AMB) | payer OTHER, SELFPAY ==
--- OUTSIDE RECORDS SUMMARY | 2024-12-05 13:04 | XMS_ITS | Clinical Summary ---
Author Organization [facility] ity Address [address] [place] [address] Care Team Providers Care Cat Tender Name Role Phone Unavailable Primary Care Provider Unavailabl e Surgical History Surgery Date Site/Laterality Comments TUBAL LIGATION PROCEDURE: HISTORICAL TUBAL LIGATION CHOLECYSTECTOMY PROCEDURE: HISTORICAL CHOLECYSTECTOMY OTHER SURGICAL HISTORY 04/29/09 PROCEDURE: HISTORICAL D&C; COMMENT: Hysteroscopic resection submucous fibroid Medical History Medical History Date Comments Essential hypertension, benign 08/24/2007 D X:Essential hypertension, benign Iron deficiency anemia 06/27/2009 DX:Iron d eficiency anemia Family History Medical History Relation Name Comments Glaucoma Brother 1 Cataracts Father Heart attack Father in 70's Hypertension Father Heart attack Maternal Grandfather Heart attack Maternal Grandmother Diabetes Mother Hypertension Mother Lung cancer Mother exp second hand smoke Other: liver cancer Other 1 PGM Other: pancreatic cancer Other 2 mom Blindness Neg Hx Breast cancer Neg Hx Cervical cancer Neg Hx Colon cancer Neg Hx Macular degeneration Neg Hx Ovarian cancer Neg Hx Strabismus Neg Hx Relation Name Status Comments Brother 1 Alive Brother 2 Alive Brother 3 Alive Father Alive htn high choles terol cad/ [place] (70s) Maternal Grandfather Maternal Grandmother Mother Alive dm Other 1 Other 2 Other 3 Sister Alive Social History Tobacco Use Types Packs/Day Years Used Date Smoking Tobacco: Never Smokeless Tobacco: Never Alcohol Use Standard Drinks/Week Comments No 0 (1 standard drink = 0.6 oz pur e alcohol) Sex and Gender Information Value Date Recorded Sex Assigned at Not on file Gender Identity Not on file Sexual Orientation Not on file Obstetrics History Plan of Treatment Health Maintenance Due Date Last Done Comments Breast Cancer Screening 1962 DTaP,Tdap,and Td Vaccines (1 - Tdap) 1981 Cervical Cancer Screening: P ap Smear 1983 Zoster Vaccines (1 of 2) 2012 Colorectal Cancer Screening: Colonoscopy 10/04/2022 Depression Screening 10/04/2022 HIV Screening 10/04/2022 Hepatitis C Screening 10/04/2022 Social Influencers of Health Screening 10/04/2022 COVID-19 Vaccine ( - 2023-2 5 season) 2024 Influenza Vaccine (#1) 2024 RSV Immunization Patients 60 + Years Old (1 - 1-dose 75+ series) 2037 HIB Vaccines Aged Out No longer eligi ble based on patient's age to complete this topic HPV Vaccines Aged Out No longer eligi ble based on patient's age to complete this topic Hepatitis A Vaccines Aged Out No long er eligible based on patient's age to complete this topic Hepatitis B Vaccines Aged Out No long er eligible based on patient's age to complete this topic IPV Vaccines Aged Out No longer eligi ble based on patient's age to complete this topic MMR Vaccines Aged Out No longer eligi ble based on patient's age to complete this topic Meningococcal ACWY Vaccine Aged Out N o longer eligible based on patient's age to complete this topic Pneumococcal Vaccine: Pediat rics (0 to 5 Years) and At-Risk Patients (6 to 64 Years) Aged Out No longer eligible b ased on patient's age to complete this topic RSV Immunization Patients Un sofi 20 months Aged Out No longer eligible b ased on patient's age to complete this topic Varicella Vaccines Aged Out No longer eligible based on patient's age to complete this topic
--- NOTE | 2024-12-05 13:34 | A.OFFPC_ITS ---
Vital Signs 12/05/24 13:35 Height 5 ft 3 in Weight 207 lb BMI 36.7 BP 126/80 Blood Pressure Location Lt brachial Position Sitting Respiration 18 Pulse 61 Pulse Source Pulse Oximeter Temp 97.9 F Temp Source Oral Pulse Oximetry (%) 98 Oxygen Delivery Method Room Air Intake Visit Reasons: Annual PE Intake Note: Pt is here today for PE. Allergies morphine Allergy (Unknown, Verified 12/05/24 13:35) Hives penicillin G Allergy (Unknown, Verified 12/05/24 13:35) Hives IV dye Allergy (Unknown, Uncoded 12/05/24 13:35) swelling Medication List - Last Reconciled 12/05/24 by Rakel Bojorquez MD albuterol sulfate 90 mcg/actuation 2 puffs inhalation Q6H losartan 100 mg PO DAILY Tobacco use date assessed: 12/05/24 Dental Screening Dental Screen Date: 12/05/24 Did you have a dental visit in the last 12 months?: Yes Did you have a dental problem in the last 6 months where you did not have access to dental care?: No Was dental information given to patient?: Patient has dentist HPI Annual PE HPI Details Pt presents for PE. Pt c/o L anterior thigh pain worse at night for 1 month. PFSH Medical History Hyperglycemia Lower back pain Paresthesia and pain of both upper extremities Normal Pap smear Mammogram normal Varicose veins of both lower extremities Annual physical exam Normal colonoscopy Asthma HTN (hypertension) Varicosities of leg Surgical History Hx of colonoscopy History of bilateral tubal ligation Hx of cholecystectomy Family History Father Afib HTN (hypertension) History of heart attack Hyperlipidemia Arthritis Mother Lung cancer Son No problems noted. Son No problems noted. Daughter No problems noted. Daughter No problems noted. Social History Housing: Apartment Alcohol intake: never Patient Tobacco Use Status: Never used Tobacco e-Cigarette/Vaping Use: Never Used service: No Current occupational status: employed Cognitive needs: No Hearing needs: No Vision needs: Yes Questionnaire PHQ-9 Over the last 2 weeks, how often have you been bothered by any of the following problems? 1. Little interest or pleasure in doing things: not at all 2. Feeling down, depressed, or hopeless: not at all 3. Trouble falling or staying asleep, or sleeping too much: not at all 4. Feeling tired or having little energy: not at all 5. Poor appetite or overeating: not at all 6. Feeling bad about yourself - or that you are a failure or have let yourself or your family down: not at all 7. Trouble concentrating on things, such as reading the newspaper or watching television: not at all 8. Moving or speaking so slowly that other people could have noticed. Or the opposite - being so fidgety or restless that you have been moving around a lot more than usual: not at all 9. Thoughts that you would be better off or of hurting yourself in some way: not at all Total score: 0 Depression Screening Interpretation: Negative Depression Screening Done: Yes 71876 - PHQ-9 Billing: Yes Source: Developed by Drs. Kevin Lim, Geno Christopher, Donnell Yao and colleagues, with an educational cherri from [employer]. Thrive Questionnaire Date Thrive assessed: 12/05/24 I am a: Patient What is your living situation today?: I have a steady place to live Within the past 12 months, did the food you bought not last and you didn't have the money to get more?: Sometimes True Within the past 12 months, did you worry whether your food would run out before you got money to buy more?: Sometimes True Do you have trouble paying for medicines?: No Do you have trouble getting transportation to medical appointments?: No Do you have trouble paying your heating and electricity bill?: Yes Do you have trouble taking care of your child, family member or friend?: No Do you have trouble with day-to-day activities such as bathing, preparing meals, shopping, managing finances, etc.?: No Are you currently unemployed and looking for a job?: No Are you interested in more education?: No Please select the resources that you would like help with: None Currently or been in a relationship where the following occur: No concerns reported THRIVE Score: 3 AUDIT C Alcohol Use Questionnaire (AUDIT-C) 1. How often do you have a drink containing alcohol?: Never 3. How often do you have six or more drinks on one occasion?: Never Total Score: 0 YANY-7 AMB Questionnaire YANY-7 Date YANY - 7 assessed: 12/05/24 Feeling nervous, anxious, or on edge: 0 = Not at all Not being able to stop or control worryin = Not at all Worrying too much about different things: 0 = Not at all Trouble relaxin = Not at all Being so restless that it is hard to sit still: 0 = Not at all Becoming easily annoyed or irritable: 0 = Not at all Feeling afraid as if something awful might happen: 0 = Not at all Total YANY-7 score (0-4 normal; 5-9 mild; 10-14 moderate; 15-21 severe): 0 Source: Developed by Drs. Kevin Lim, Geno Christopher, Donnell Yao and colleagues, with an educational cherri from [employer]. YANY-7 Assessment Billing YANY-7 Assessment Tool: YANY-7 Assessment 88242 Review of Systems Const All systems reviewed & are unremarkable except as noted in HPI and below Reports no additional complaints Eyes Reports no additional complaints ENT Reports no additional complaints Card Reports no additional complaints Resp Reports no additional complaints GI Reports no additional complaints Reports no additional complaints Physical exam (Primary Care) Vital Signs: Last Vital Signs Temp 97.9 F 12/05/24 13:35 Pulse 61 12/05/24 13:35 Resp 18 12/05/24 13:35 BP 126/80 12/05/24 13:35 Pulse Ox 98 12/05/24 13:35 Oxygen Delivery Method Room Air 12/05/24 13:35 BMI result Body Mass Index 36.7 Tobacco/Smoking Status: Tobacco use Status Tobacco use date assessed 12/05/24 12/05/24 13:37 Patient Tobacco Use Status Never used Tobacco 12/05/24 13:37 e-Cigarette/Vaping Use Never Used 12/05/24 13:37 PHQ-9: PHQ-9 Score PHQ-9: Total score 0 12/05/24 13:37 Depression Screening Interpretation: Negative Thrive Assessment: Date of Thrive Assessment Date Thrive assessed 12/05/24 12/05/24 13:37 Currently or been in a relationship where the following occur: No concerns reported Const General: no acute distress HENMT Head: Yes normal to inspection Ears: hearing grossly normal bilaterally Face and sinus: Yes normal facial exam Mouth: Normal oral and palatal mucosa present Throat: Yes posterior oropharynx normal Eyes General: appearance normal, both eyes and all related structures Neck Neck: Yes no lymphadenopathy and Yes supple Resp Effort & Inspection: normal respiratory effort Auscultation: clear to auscultation bilaterally Cardio Rhythm: regular rhythm Heart sounds: S1 normal heart sound present and S2 normal heart sound present GI Inspection: Yes normal to inspection Palpation (GI): Soft to palpation Percussion: Yes normal to percussion Auscultation: normal bowel sounds Extrem Other: There is reproducible tenderness over left trochanteric bursa, there is slightly decreased range of motion left hip, no soft tissue swelling General: Yes no clubbing, cyanosis or edema Coding Level of Care Code Est Pt Prev Care 40-64y(29615) Diagnoses HTN (hypertension) I10 Annual physical exam Z00.00 Hyperglycemia R73.9 Mammogram normal Additional Codes YANY-7 Assessment Billing - YANY-7 Assessment Tool: YANY-7 Assessment [id number] ([id number]) PHQ-9 - 70439 - PHQ-9 Billing: Yes ([id number]) Assessment & Plan Assessment & Plan (1) HTN (hypertension): Code(s): I10 - Essential (primary) hypertension Category: Medical Plan: Continue losartan (2) Annual physical exam: Code(s): Z00.00 - Encounter for general adult medical examination without abnormal findings Category: Medical Plan: Well-balanced diet regular physical activity weight loss discussed with the patient she will return for fasting blood work. Patient is up-to-date with mammogram and Pap by paper sales representative. She will be referred to GI for colonoscopy (3) Hyperglycemia: Code(s): R73.9 - Hyperglycemia, unspecified Category: Medical Plan: ADA diet discussed with the patient check A1c (4) Mammogram normal: Comment: 09/2024 negative Category: Medical Plan: Up-to-date with mammogram Orders: Orders Comprehensive Street. Panel Fast Today I10 - Essential (primary) hypertension, R73.9 - Hyperglycemia, unspecified, Z00.00 - Encounter for general adult medical examination without abnormal findings Complete Blood Count Auto Diff Today I10 - Essential (primary) hypertension, R73.9 - Hyperglycemia, unspecified, Z00.00 - Encounter for general adult medical examination without abnormal findings TSH reflex Free T4 Today I10 - Essential (primary) hypertension, R73.9 - Hyperglycemia, unspecified, Z00.00 - Encounter for general adult medical examination without abnormal findings Hemoglobin A1c 1 Year I10 - Essential (primary) hypertension, R73.9 - Hyperglycemia, unspecified, Z00.00 - Encounter for general adult medical examination without abnormal findings Complete Blood Count Auto Diff 1 Year I10 - Essential (primary) hypertension, R73.9 - Hyperglycemia, unspecified, Z00.00 - Encounter for general adult medical examination without abnormal findings TSH reflex Free T4 1 Year I10 - Essential (primary) hypertension, R73.9 - Hyperglycemia, unspecified, Z00.00 - Encounter for general adult medical examination without abnormal findings Lipid Panel Today I10 - Essential (primary) hypertension, R73.9 - Hyperglycemia, unspecified, Z00.00 - Encounter for general adult medical examination without abnormal findings Hemoglobin A1c Today I10 - Essential (primary) hypertension, R73.9 - Hypergl ycemia, unspecified, Z00.00 - Encounter for general adult medical examination without abnormal findings Microalbumin, Random (w Creat) Today I10 - Essential (primary) hypertension, R73.9 - Hyperglycemia, unspecified, Z00.00 - Encounter for general adult medical examination without abnormal findings Comprehensive Street. Panel Fast 1 Year I10 - Essential (primary) hypertension, R73.9 - Hyperglycemia, unspecified, Z00.00 - Encounter for general adult medical examination without abnormal findings Lipid Panel 1 Year I10 - Essential (primary) hypertension, R73.9 - Hyperglycemia, unspecified, Z00.00 - Encounter for general adult medical examination without abnormal findings Microalbumin, Random (w Creat) 1 Year I10 - Essential (primary) hypertension, R73.9 - Hyperglycemia, unspecified, Z00.00 - Encounter for general adult medical examination without abnormal findings Referrals Gastroenterology Referral Z00.00 - Encounter for general adult medical examination without abnormal findings
[2024-12-05 13:35] VITALS: BP 126/80; PULSE 61; RESP 18; TEMP 36.6; O2SAT 98; BMI 36.7
== END 2024-12-05 14:21 | disposition home or self-care (01) ==
PROVIDERS: PCP Internal Medicine; Visit Provider Internal Medicine
DX: I10 Essential (primary) hypertension (principal); Z00.00 Encounter for general adult medical examination without abnormal findings; R73.9 Hyperglycemia, unspecified

== ENCOUNTER → 2024-12-05 12:33 | Outpatient (BNVA) | payer OTHER, SELFPAY | PROVIDERS: PCP Internal Medicine; Visit Provider Internal Medicine | DX: Z00.01 Encounter for general adult medical examination with abnormal findings (principal); I10 Essential (primary) hypertension; R73.9 Hyperglycemia, unspecified | CPT/HCPCS: 96127; 99396 ==

== ENCOUNTER 2024-12-09 07:59 | Outpatient (REF) | payer OTHER, SELFPAY ==
--- OUTSIDE RECORDS SUMMARY | 2024-12-09 08:02 | XMS_ITS | Clinical Summary ---
Author Organization [facility] ity Address [address] [place] [address] Care Team Providers Care Boiler Tenders Supervisor Name Role Phone Unavailable Primary Care Provider [...] Father Alive htn high choles terol cad/ [place] (70s) Maternal Grandfather Maternal Grandmother Mother Alive [...]
[2024-12-09 11:15] LABS: MANUAL DIFF FLAG NO
[2024-12-09 11:17] LABS: Basophils Absolute Auto 0.1 X10*3/uL (0.0-0.2); Eosinophils Absolute Auto 0.3 X10*3/uL (0.0-0.4); Eosinophils Percent Auto 5.6 % (0-4); Hematocrit 42.7 % (37.0-47.0); Hemoglobin 14.4 g/dl (12.0-16.0); Imm Gran Abs Auto 0.03 X10*3/uL (0.00-0.03); Imm Gran Pct Auto 0.5 % (0.0-0.4); Lymphocytes Absolute Auto 2.3 X10*3/uL (1.2-4.9); Mean Corpuscular HGB Conc 33.7 g/dl (31.0-35.0); Mean Corpuscular Hemoglobin 29.1 pg (27.0-33.0); Mean Corpuscular Volume 86.4 fL (80.0-98.0); Monocytes Absolute Auto 0.5 X10*3/uL (0.1-1.2); Neutrophils Absolute Auto 2.9 x10*3/uL (2.0-8.3); Neutrophils Percent Auto 47.9 % (45-73); Platelet Count 302 X10*3/uL (160-400); Red Blood Count 4.94 X10*6/uL (4.20-5.50); Red Cell Distribution Width 13.2 % (11.0-16.0); White Blood Count 6.1 X10*3/uL (4.8-10.8)
[2024-12-09 11:32] LABS: Estimated Average Glucose 131 mg/dL; Hemoglobin A1C 164.4686 umol/L; Hemoglobin A1c % 6.2 % (<6.0); Total Hemoglobin (HGBA1C) 3759.9235 umol/L
[2024-12-09 11:34] LABS: Microalbumin Urine < 5.0 mg/L
[2024-12-09 12:06] LABS: Alanine Aminotransferase 29 U/L (0-31); Albumin Level 3.8 g/dL (3.5-5.0); Alkaline Phosphatase 121 U/L (39-117); Anion Gap 10 (12-20); Aspartate Amino Transferase 26 U/L (5-31); Bilirubin Total 0.4 mg/dL (0.0-1.0); Blood Urea Nitrogen 16 mg/dL (9-16); Calcium 9.2 mg/dL (8.4-10.2); Carbon Dioxide 27 mmol/L (22-29); Chloride 108 mmol/L (96-108); Cholesterol 164 mg/dL (<200); Estimated Glomerular Filt Rate > 60; Glucose Fasting 111 mg/dL (60-99); HDL Cholesterol 54 mg/dL (>40); LDL Cholesterol Calculated 91 mg/dL (<100); Potassium 4.4 mmol/L (3.3-5.1); Sodium 141 mmol/L (135-145); Total Protein 7.2 g/dL (6.5-8.0); Triglycerides 98 mg/dL (<150)
== END 2024-12-09 08:00 | disposition home or self-care (01) ==
LOC: HO.HMGCLDS 07:59
PROVIDERS: PCP Internal Medicine; Visit Provider Internal Medicine
DX: Z00.00 Encounter for general adult medical examination without abnormal findings (principal); I10 Essential (primary) hypertension; R73.9 Hyperglycemia, unspecified
CPT/HCPCS: 36415; 80053; 80061; 82570; 83036; 84443; 85025

== ENCOUNTER 2025-03-24 09:35 | Outpatient (REF) | payer OTHER, SELFPAY | END 2025-03-24 09:36 | disposition home or self-care (01) | LOC: HO.MAMMO 09:35 | PROVIDERS: PCP Internal Medicine; Visit Provider Internal Medicine | DX: Z12.31 Encounter for screening mammogram for malignant neoplasm of breast (principal) | CPT/HCPCS: 77063; 77067 ==

== ENCOUNTER → 2025-03-24 10:00 | Outpatient (BNV) | payer OTHER, SELFPAY | PROVIDERS: PCP Internal Medicine; Visit Provider Internal Medicine | DX: Z12.31 Encounter for screening mammogram for malignant neoplasm of breast (principal) | CPT/HCPCS: 77063; 77067 ==

== ENCOUNTER 2025-06-15 11:23 | Outpatient (AMB) | payer OTHER, SELFPAY ==
--- NOTE | 2025-06-15 11:25 | A.OFFVIS_ITS ---
Vital Signs 06/15/25 11:43 Height 5 ft 3 in Weight 208 lb BMI 36.8 BP 148/92 H Blood Pressure Location Rt brachial Position Sitting Pulse 60 Pulse Source Pulse Oximeter Pulse Oximetry (%) 98 Oxygen Delivery Method Room Air Intake Visit Reasons: Colonoscopy Scrn Intake Note: NEW PATIENT for recall colo, 2nd lifetime. Last @ age 52 per PCP (@ [facility] [place]) Chief Complaint; C.O. moderate to severe constipation, B/L LQ abd pain which pt reports seems to be associated with their constipation. Pt denies any additional sx or concerns at this time. Crew Boat Operator Required: Yes Crew Boat Operator Services: Crew Boat Operator Present Crew Boat Operator Name: [id number] Information Interpreted: clinical only Accompanied by: Self / Same As Patient Allergies morphine Allergy (Unknown, Verified 12/05/24 13:35) Hives penicillin G Allergy (Unknown, Verified 12/05/24 13:35) Hives IV dye Allergy (Unknown, Uncoded 12/05/24 13:35) swelling HPI HPI Colonoscopy Scrn: Details: LAST VISIT: Screen for colon cancer Patient denies any cardiac or respiratory symptoms.? Occasional symptoms of postprandial acid reflux, bloating. Reports to have also constipation. Patient states that sometimes she might have blood on the tissue when she wipes. Denies any issues with anesthesia in the past.? Denies any history of sleep apnea.? No history infectious diseases in the past or present.? Not on any anticoagulation therapy.? No family or personal history of colon cancer or polyps.? Last colonoscopy when patient was 52 that was normal. Patient denies melena, hematochezia, unintentional weight loss or ribbon like stools.? Discussed at length the pre-procedure,? prep, diet & medications as well as what to expect prior, during and after the procedure.?? Stressed the importance of good bowel prep. ?Recommended the use of Vaseline or Calmoseptine OTC & baby wipes with bowel movements to promote comfort.? ?Patient verbalizes understanding and agrees to plan of care.? She was given the opportunity to ask questions and all questions answered.? We will see her after the procedure.? Constipation Patient can take docusate sodium and Senokot. She can also take Citrucel. Patient reports that she moves her bowels almost every day, however she does not feel like she empties them completely. Patient will be going for colonoscopy 1 make sure that she moves her bowels better. GERD (gastroesophageal reflux disease) Patient is not on any PPIs will do H pylori breath testing today and treat empirically positive. Patient will also be started on pantoprazole. Patient reports that her symptoms are usually postprandially. Discussed with patient avoiding dietary triggers and late night snacking. Discussed with patient the importance of staying upright for minimum 3 hours after meals. I will see patient after colonoscopy. Hemorrhoid Occasional rectal discomfort when patient has a bowel movement. Patient denies melena, hematochezia, unintentional weight loss or ribbon like stools. Occasional blood in his stool when she wipes. Start Proctosol on as needed basis. Patient will be going for colonoscopy. Plan Orders Orders H Pylori Breath Test 02/27/22 Medications New bisacodyl (Dulcolax (bisacodyl)) take 2 tabs at noon the day before your colonoscopy 10 mg (2 x 5 mg) PO ONCE 1 day 2 tabs 0RF Z12.11 docusate sodium 100 mg PO BEDTIME 90 caps 3RF K59.00 methylcellulose (laxative) (Citrucel) take it with full glass of water 500 mg PO DAILY 90 tabs 2RF K59.00 sennosides (Natural Senna Laxative) 17.2 mg (2 x 8.6 mg) PO BEDTIME 180 tabs 3RF constipation K59.00 hydrocortisone 2.5% (Proctosol HC) 1 appl [place] BID-QID PRN 30 grams 2RF hemorrhoids K64.9 pantoprazole take one tablet half an hour before breakfast 40 mg PO DAILY 90 tabs 2RF K21.9 polyethylene glycol 3350 (Miralax) As directed by gastroenterology department at [facility] 238 grams PO ONCE 238 grams 0RF Z12.11 TODAY'S VISIT Patient is here today to discuss going for colonoscopy. Last seen was in January of 2022. Patient came to the office discuss going for colonoscopy. Patient reports that she did not go syncope as she had trouble with her insurance. Patient had a normal colonoscopy at age of 52. Last visit we tested her for H pylori. Patient was positive and we treated her empirically. Patient reports that she has no epigastric pain or discomfort. Reports abdominal bloating and constipation. Patient states that she was on senna, however no longer has the medication. She states that was helpful but she still felt like she was not emptying her bowels well. Patient denies any issues with anesthesia. Nothing changed since last time she was seen in this office. Denies any cardiac or respiratory symptoms. [facility] Medical History Hyperglycemia Lower back pain Paresthesia and pain of both upper extremities Normal Pap smear Mammogram normal Varicose veins of both lower extremities Annual physical exam Normal colonoscopy Asthma HTN (hypertension) Varicosities of leg Surgical History Hx of colonoscopy History of bilateral tubal ligation Hx of cholecystectomy Family History Father Afib HTN (hypertension) History of heart attack Hyperlipidemia Arthritis Mother Lung cancer Son No problems noted. Son No problems noted. Daughter No problems noted. Daughter No problems noted. Social History Housing: Apartment Alcohol intake: never Patient Tobacco Use Status: Never used Tobacco e-Cigarette/Vaping Use: Never Used service: No Current occupational status: employed Cognitive needs: No Hearing needs: No Vision needs: Yes Review of Systems Const Denies weight gain and Denies weight loss ENT Reports no additional complaints, Denies dysphagia and Denies odynophagia Card Reports no additional complaints Resp Reports no additional complaints GI Denies abdominal pain, Denies belching, Denies melena, Denies bloating, Denies change in bowel habits, Denies dysphagia, Denies excessive flatus, Denies dyspepsia, Denies heartburn, Denies diarrhea, Denies loose stools, Denies nause a, Denies odynophagia and Denies vomiting Musc Reports no additional complaints Neuro Reports no additional complaints Psych Reports no additional complaints Endo Reports no additional complaints Physical Exam Vital Signs: Last Vital Signs Pulse 60 06/15/25 11:43 BP 148/92 H 06/15/25 11:43 Pulse Ox 98 06/15/25 11:43 Oxygen Delivery Method Room Air 06/15/25 11:43 BMI result Body Mass Index 36.8 Const General: healthy appearing, no acute distress and well developed Nutritional Appearance: well nourished Orientation/consciousness: patient oriented x3 Resp Effort & Inspection: normal respiratory effort, able to speak in complete sentences, no tracheal deviation and symmetric chest movement Auscultation: clear to auscultation bilaterally Cardio Rate: regular rate GI Inspection: Yes normal to inspection, No distended and Yes obesity Palpation (GI): Soft to palpation, not firm, nontender and No hepatosplenomegaly present Auscultation: normal bowel sounds General: Yes no CVA tenderness Back/Spine/Pelvis Back: no CVA tenderness Skin General skin exam: elasticity normal, turgor normal and dry skin Neuro General: patient oriented x3 Psych Appearance: grossly normal Mental Status: mental status grossly normal Assessment & Plan Assessment & Plan (1) Gastroesophageal reflux disease: Comment: s/p H pylori tx 02/20 Code(s): K21.9 - Gastro-esophageal reflux disease without esophagitis Category: Medical Qualifiers: Esophagitis presence: esophagitis presence not specified Qualified Code(s): K21.9 - Gastro-esophageal reflux disease without esophagitis (2) Normal colonoscopy: Comment: at 52 Category: Medical (3) Screen for colon cancer: Code(s): Z12.11 - Encounter for screening for malignant neoplasm of colon (4) Constipation: Code(s): K59.00 - Constipation, unspecified Qualifiers: Constipation type: slow transit constipation Qualified Code(s): K59.01 - Slow transit constipation Plan Patient reports right and left lower quadrant pain. Reports to be constipated. Will start her on Dulcolax. Occasional blood in his stool after straining. Patient will start Proctosol. Message sent to surgical schedulers to book upper endoscopy and colonoscopy for patient. Upper endoscopy as patient has a history of H pylori. Currently she is not having any epigastric pain, however occasional acid reflux depending on what she eats. Patient will return in 2 months to re-evaluate. She is agreeable to this plan and verbalizes understanding of instructions. She was given the opportunity to ask questions and all questions answered. Thank you for allowing me to participate in her care Medications: New bisacodyl (Dulcolax (bisacodyl)) 10 mg (2 x 5 mg) PO BEDTIME 180 tabs 4RF hydrocortisone 2.5% (Proctosol HC) 1 appl [place] BID-QID PRN 30 grams 2RF hemorrhoids K64.9 - Unspecified hemorrhoids polyethylene glycol 3350 (Miralax) As directed by gastroenterology department at [facility] 238 grams PO ONCE 238 grams 0RF Z12.11 - Encounter for screening for malignant neoplasm of colon polyethylene glycol 3350 (Miralax) As directed by gastroenterology department at [facility] 238 grams PO ONCE 238 grams 0RF Z12.11 - Encounter for screening for malignant neoplasm of colon Coding Level of Care Code New Pt Level 3 (19812) Diagnoses Gastroesophageal reflux disease, unspecified whether esophagitis present K21.9 Esophagitis presence: esophagitis presence not specified Normal colonoscopy Screen for colon cancer Z12.11 Slow transit constipation K59.01 Constipation type: slow transit constipation Time Spent (min) 40 Comment 30 minutes spent with patient and additional 10 minutes spent reviewing her records
--- OUTSIDE RECORDS SUMMARY | 2025-06-15 11:26 | XMS_ITS | Clinical Summary ---
[facility] Address [address] [place] [address] Care Team Providers Care Administrative Office Assistant Name Role Phone Unavailable Primary Care Provider [...] Father Alive htn high choles terol cad/ [place] (70s) Maternal Grandfather Maternal Grandmother Mother Alive dm Other 1 Other 2 Other 3 Sister Alive Social History Tobacco Use Types Packs/Day Years Used Date Smoking Tobacco: Never Smokeless Tobacco: Never Alcohol Use Standard Drinks/Week Comments No 0 (1 standard drink = 0.6 oz pur e alcohol) Comments Unknown Sex and Gender Information Value Date Recorded Sex Assigned at Not on file Legal Sex Female 2:26 AM EST Gender Identity Not on file Sexual Orientation Not on file Obstetrics History Plan of Treatment Health Maintenance Due Date Last Done Comments Breast Cancer Screening 1962 DTaP,Tdap,and Td Vaccines (1 - Tdap) 1981 Cervical Cancer Screening: P ap Smear 1983 Pneumococcal Vaccine: 50+ Ye ars (1 of 1 - PCV) 2012 Zoster Vaccines (1 of 2) 2012 Colorectal Cancer Screening: Colonoscopy 10/04/2022 HIV Screening 10/04/2022 Hepatitis C Screening 10/04/2022 Social Influencers of Health Screening 10/04/2022 COVID-19 Vaccine ( - 2023-2 5 season) 2024 Depression Screening 11/01/2024 Influenza Vaccine (#1) 2025 RSV Immunization Adult Patie nts (1 - 1-dose 75+ series) 2037 HIB [...] patient's age to complete this topic Meningococcal B Vaccine Aged Out No l onger eligible based on patient's age to complete this topic RSV Immunization Patients Un sofi 20 months Aged Out No longer eligible b ased on patient's age to complete this topic Varicella Vaccines Aged Out No longer eligible based on patient's age to complete this topic
[2025-06-15 11:43] VITALS: BP 148/92; PULSE 60; O2SAT 98; BMI 36.8
== END 2025-06-15 12:08 | disposition home or self-care (01) ==
LOC: HO.HGI 11:24
PROVIDERS: PCP Internal Medicine; Visit Provider Nurse Practitioner Family
DX: Z01.818 Encounter for other preprocedural examination (principal); Z12.11 Encounter for screening for malignant neoplasm of colon; K21.9 Gastro-esophageal reflux disease without esophagitis; K59.01 Slow transit constipation
CPT/HCPCS: 99203

== ENCOUNTER → 2025-06-15 11:23 | Outpatient (BNVA) | payer OTHER, SELFPAY | PROVIDERS: PCP Internal Medicine; Visit Provider Nurse Practitioner Family | DX: Z01.818 Encounter for other preprocedural examination (principal); K21.9 Gastro-esophageal reflux disease without esophagitis; K59.01 Slow transit constipation | CPT/HCPCS: 99202 ==

== ENCOUNTER 2025-09-04 10:42 | Outpatient (AMB) | payer OTHER, SELFPAY ==
--- OUTSIDE RECORDS SUMMARY | 2025-06-21 07:30 | XMS_ITS | Continuity of Care Document ---
Author Organization [facility] Address [address] [place] [address] Phone Care Team Providers Care Supervisor Drying And Winding Name Role Phone Jewel DESAI, RVT, RPVI, Kevin Unavailable U navailable Allergies, Adverse Reactions, Alerts Substance Reaction Status Criticality Iodinated Contrast Media Active No Information morphine Active No Information PENICILLIN Active No Information Procedures Procedure Date Duplex Scan-extrem Veins; Uni/ CT & [place] A Inj Scleros Solut; Mx Veins 1- CT & MA A Ultrason Guidan Needle Bx-rad- CT & MA A Office/Outpt E&M Established 15 Mins- CT & MA Duplex Scan-extrem Veins; Comp- CT & MA Duplex Scan-extrem Veins; Uni/ CT & MA J Inj Scleros Solut; Mx Veins 1- CT & MA J Ultrason Guidan Needle Bx-rad- CT & MA J Duplex Scan-extrem Veins; Uni/ CT & MA J Inj Scleros Solut; Mx Veins 1- CT & MA J Ultrason Guidan Needle Bx-rad- CT & MA J Duplex Scan-extrem Veins; Uni/ CT & MA J Endovenous Laser, 1st Vein- CT & MA Duplex Scan-extrem Veins; Uni/ CT & MA J Duplex Scan-extrem Veins; Uni/ CT & MA M Inj Scleros Solut; Mx Veins 1- CT & MA M Ultrason Guidan Needle Bx-rad- CT & MA M Duplex Scan-extrem Veins; Uni/ CT & MA M Inj Scleros Solut; Mx Veins 1- CT & MA M Ultrason Guidan Needle Bx-rad- CT & MA M Endovenous Laser, 1st Vein- CT & MA Offic Cons New/estab Mod-hi 80- CT & MA Surgical Stockings CVR Reveal Thigh High Duplex Scan-extrem Veins; Comp- CT & MA Advance Directives Directive Yes / No Effective Date File Name No Information Encounters Encounter Description Practice Location Reason(s) For Visit Diagnoses Date Provider Providers Copied on Encounter [facility] MD ROJAS, [address] [place] [address] Dr Lujan [address]Patrick [place], [id number], [place] tel:[phone] [facility] - [facility] Encounter for follow-up examination after completed treatment for conditions other than malignant neoplasmChronic venous hypertension (idiopathic) with other complications of right lower extremity 5 Jewel DESAI RVT, KARIS Brown. [address] [place] [address], [place], [place], [id number] , [place]. [phone] Referring Provider: Rakel Zepeda, [address] [place] [address], [address]. tel:[phone] [facility], [address] [place] [address] Dr Lujan 1000[address]Patrick [place], [id number], [place] tel:[phone] [facility] of right lower extremity with other complications 5 Jewel DESAI RVT, KARIS Brown. [address] [place] [address], [place], [place], [id number] , [place]. [phone] Referring Provider: Rakel Zepeda, [address] [place] [address], [address]. tel:[phone] Office/Outpt E&M Established 15 Mins- CT & [place] [facility] MD ROJAS, [address] [place] [address] Dr Lujan 1000SuPatrick dodson [place], [id number], [place] tel:[phone] [facility] Localized edemaLymphedema , not elsewhere classifiedPruri tus, unspecifiedHere ditary lymphedemaCramp and spasmRestless legs syndromeVenous insufficiency (chronic) (peripheral)Ess ential (primary) hypertension 5 Jewel DESAI RVT, RPVI Robert. [address] [place] [address], Suite [facility], [place], [id number] , [place]. [phone] [facility] MD ROJAS, [address] [place] [address] Dr Lujan 1000SuPatrick dodson [place], [id number], [place] tel:[phone] [facility] Chronic venous hypertension (idiopathic) with other complications of bilateral lower extremity 5 Jewel DESAI RVT, KARIS Brown. [address] [place] [address], [place] [address], [place], [id number] , [place]. tel:[phone] Referring Provider: Kevin Holloway MD, RVT, KARIS, [address] [place] [address], [place], [address] . tel:[phone] [facility], [address] [place] [address] Dr Lujan 1000SuPatrick dodson [place], [id number], [place] tel:[phone] [facility] Encounter for follow-up examination after completed treatment for conditions other than malignant neoplasmPain in left lower leg 5 Jewel DESAI RVT, RPVI Robert. [address] [place] [address], [place] [address], [place], [id number] , [place]. tel:[phone] Referring Provider: Kevin Holloway MD, RVT, KARIS, [address] [place] [address], [place], [address] . tel:[phone] [facility], [address] [place] [address] Dr Lujan 1000Suite Patrick Russo [place], [id number], [place] tel:[phone] [facility] - [place] - [facility] Varicose veins of left lower extremity with other complications 5 Jewel DESAI RVT, KARIS Brown. [address] [place] [address], [place] [address], [place], [place], [id number] , [place]. [phone] Referring Provider: Rakel Bojorquez MD S, [address] [place] [address], [place], [address]. tel:[phone] [facility], [address] [place] [address] [address]Patrick [place], [id number], [place] tel:[phone] [facility] [place] [facility] Encounter for follow-up examination after completed treatment for conditions other than malignant neoplasmVaricos e veins of left lower extremity with pain 5 Jewel DESAI RVT, KARIS Brown. [address] [place] [address], [place], [place], [id number] , [place]. [phone] Referring Provider: Rakel Bojorquez MD S, [address] [place] [address], [place], [address]. tel:[phone] [facility], [address] [place] [address] [address]Suite Patrick Russo MD, [id number], [place] tel:[phone] [facility] - [place] - [facility] Varicose veins of left lower extremity with other complications 0 5 Jewel DESAI RVT, RPVI Robert. [address] [place] [address], [place], [place], [id number] , [place]. tel:[phone] Referring Provider: Rakel Bojorquez MD S, [address] [place] [address], [place], [address]. tel:[phone] [facility], [address] [place] [address] Dr Lujan 1000Suite Patrick Russo [place], [id number], [place] tel:[phone] [facility] - [place] [facility] Encounter for follow-up examination after completed treatment for conditions other than malignant neoplasmVaricos e veins of left lower extremity with pain True-0 5 Jewel DESAI RVT, KARIS Brown. [address] [facility] [address], [address], [place], [id number] , [place]. tel:[phone] Referring Provider: Rakel Bojorquez MD S, [address] [place] [address], [place], [address]. tel:[phone] [facility] [facility], [address] [place] [address] [address]Suite [place] Russo [place], [id number], [place] [phone] [facility] - [facility] Varicose veins of left lower extremity with other complications True-0 5 Jewel DESAI RVT, KARIS Brown. [address] [facility] [facility] [address], [address], [place], [id number] , [place]. tel:[phone] Referring Provider: Rakel Bojorquez MD S, [address] [place] [address], [place], [address]. tel:[phone] [facility] [facility], [address] [place] [address] [address]Suite Patrick Russo [place], [id number], [place] [phone] [facility] - [facility] Encounter for follow-up examination after completed treatment for conditions other than malignant neoplasmVaricos e veins of right lower extremity with pain True-0 5 Jewel DESAI RVT, KARIS Brown. [address] [facility], [address], [place], [id number] , [place]. tel:[phone] Referring Provider: Rakel Bojorquez MD S, [address] [place] [address], [place], [address]. tel:[phone] [place] [facility], [address] [place] [address] Dr Lujan 1000Suite 1000Patrick [place], [id number], [place] tel:[phone] [facility] - [place] Encounter for follow-up examination after completed treatment for conditions other than malignant neoplasmVaricos e veins of right lower extremity with pain 0 5 Jewel DESAI RVT, KARIS Brown. [address] [facility], [address], [place], [place], [id number] , [place]. tel:[phone] Referring Provider: Kevin Holloway MD, RVT, RPVI, [address] [place] [address] [address], [facility] [place], [address] . tel:[phone] [facility], [address] [place] [address] Tai 1000Suite 1000Patrick [place], [id number], [place] [phone] [facility] - [place] Varicose veins of right lower extremity with other complications 5 Jewel DESAI RVT, RPVI Robert. [address] [place] [address], [address], [place], [id number] , [place]. tel:[phone] Referring Provider: Kevin Holloway MD, RVT, RPVI, [address] [place] [address] [address], [place], [address] . tel:[phone] [facility], [address] [place] [address] 1000Suite 1000Patrick [place], [id number], [place] [phone] [facility] [place] Encounter for follow-up examination after completed treatment for conditions other than malignant neoplasmChronic venous hypertension (idiopathic) with other complications of right lower extremity 5 Jewel DESAI RVT, RPVI Robert. [address] [place] [address], [place], [id number] , [place]. tel:[phone] Referring Provider: Rakel Bojorquez MD S, [address] [place] [address], [place], [address]. tel:[phone] [facility], [address] [place] [address] 1000Suite 1000Patrick [place], [id number], [place] [phone] [facility] [place] Varicose veins of right lower extremity with other complications 5 Jewel DESAI RVT, RPVI Robert. [address] [place] [address], [address], [facility] [place], [id number] , [place]. [phone] Referring Provider: Rakel Bojorquez MD S, [address] [place] [address], [place], [address]. tel:[phone] [facility], [address] [place] [address] Dr Lujan 1000Suite 1000Patrick [place], [id number], [place] tel:[phone] [facility] - [place] - [place] No Information 5 Jewel DESAI RVT, KARIS Brown. [address] [facility], [facility] [address], [facility] [place], [id number] , [place]. tel:[phone] [place] [facility], [address] [place] [address] Dr Lujan 1000Suite 1000Patrick [place], [id number], [place] tel:[phone] [facility] - [facility] Varicose veins of right lower extremity with other complications 5 Jewel DESAI RVT, KARIS Brown. [address] [place] [address], [address], [place], [place], [id number] , [place]. tel:[phone] Referring Provider: Rakel Bojorquez MD S, [address] [facility] [address] [place], [address]. tel:[phone] Offic Cons New/estab Mod-hi 80- CT & [place] [facility], [address] [place] [address] Dr Lujan 1000Suite Patrick Russo [place], [id number], [place] tel:[phone] [facility] - [facility] Chronic venous hypertension (idiopathic) without complications of bilateral lower extremityRestle ss legs syndromeEssenti al (primary) hypertensionLym phedema, not elsewhere classifiedPruri tus, unspecifiedPain in left legHereditary lymphedemaCramp and spasmLocalized edema 5 Jewel DESAI RVT, KARIS Brown. [address] [facility], [address], [place], [id number] , [place]. tel:[phone] [facility], [address] [place] [address] Dr Lujan 1000Suite Patrick Russo [place], [id number], [place] tel:[phone] [facility] - [facility] Chronic venous hypertension (idiopathic) with other complications of bilateral lower extremity 5 Jewel DESAI RVT, RPVI Robert. [address] [facility], [address], [place], [id number] , [place]. tel:[phone] Referring Provider: Kevin Holloway MD, RVT, RPVI, [address] [facility] [address], [facility] [place], [address] . tel:[phone] Family History Family Member Type Diagnosis Age At Onset No Information Payers Payer name Insurance type Covered libertarian ID Navya rojo(s) [facility] [employer] CI [id number] Social History Type Description Quantity Date Captured Comments Sex Female Smoking Status No Information Chief Complaint And Reason For Visit No Information Reason For Referral Reason For Referral No Information Plan Of Treatment Date Type Action Status Goal Diet education completed Goal Diet education completed Referral Ordered: Weight management: Referral to physician timeframe: 3 Months (related to Body mass index (BMI) 36.0-36.9, adult) ordered Referral Ordered: Weight management: Referral to physician timeframe: 3 Months (related to Body mass index (BMI) 36.0-36.9, adult) ordered Appointment Lesly Parry BOOKED Appointment Lesly Parry BOOKED History Of Present Illness Encounter Date Complaint History Of Prese nt Illness No Information Functional Status Date Functional Assessmen t No Information Instructions Date Instruction Additional Infor tegan Pre and post instruc tions reviewed and provided Related to Localized edema Patient education booklet given Related to Localized edema Lifestyle education Related to B foster mass index (BMI) 36.0-36.9, adult Giving Encouragement to exercise Related to Body mass index (BMI) 36.0-36.9, adult Diet education Related to Body mass index (BMI) 36.0-36.9, adult Pre and post instruc tions reviewed and provided Related to Chronic venous hypertension (idiopathic) without complications of bilateral lower extremity Patient education booklet given Related to Chronic venous hypertension (idiopathic) without complications of bilateral lower extremity Lifestyle education Related to B foster mass index (BMI) 36.0-36.9, adult Giving Encouragement to exercise Related to Body mass index (BMI) 36.0-36.9, adult Diet education Related to Body mass index (BMI) 36.0-36.9, adult Assessments Type Assessment Date No Information Patient Care Teams Name Effective Dates (start - stop) Status Members No Information
--- NOTE | 2025-09-04 10:42 | A.OFFVIS_ITS ---
Vital Signs 09/04/25 10:49 Height 5 ft 3 in Weight 207 lb BMI 36.7 BP 128/92 H Blood Pressure Location Rt brachial Position Sitting Pulse 60 Pulse Source Pulse Oximeter Pulse Oximetry (%) 98 Oxygen Delivery Method Room Air Intake Visit Reasons: discuss colo Intake Note: Est pt for mgmt of GERD + CIC. Rediscuss colo/egd. CC: Pt denies any new GI concerns or sx at this time. Automobile Body Repair Chief Required: Yes Automobile Body Repair Chief Services: Automobile Body Repair Chief Present Automobile Body Repair Chief Name: Lashanda [id number] Information Interpreted: clinical only Accompanied by: Self / Same As Patient Allergies morphine Allergy (Unknown, Verified 12/05/24 13:35) Hives penicillin G Allergy (Unknown, Verified 12/05/24 13:35) Hives IV dye Allergy (Unknown, Uncoded 12/05/24 13:35) swelling HPI HPI discuss colo: Details: LAST VISIT: Gastroesophageal reflux disease Normal colonoscopy Screen for colon cancer Constipation Plan Patient reports right and left lower quadrant pain. Reports to be constipated. Will start her on Dulcolax. Occasional blood in his stool after straining. Patient will start Proctosol. Message sent to surgical schedulers to book upper endoscopy and colonoscopy for patient. Upper endoscopy as patient has a history of H pylori. Currently she is not having any epigastric pain, however occasional acid reflux depending on what she eats. Patient will return in 2 months to re- evaluate. She is agreeable to this plan and verbalizes understanding of instructions. She was given the opportunity to ask questions and all questions answered. ? Thank you for allowing me to participate in her care New bisacodyl (Dulcolax (bisacodyl)) 10 mg (2 x 5 mg) PO BEDTIME 180 tabs 4RF hydrocortisone 2.5% (Proctosol HC) 1 appl PA BID-QID PRN 30 grams 2RF hemorrhoids K64.9 polyethylene glycol 3350 (Miralax) As directed by gastroenterology department at [facility] 238 grams PO ONCE 238 grams 0RF Z12.11 polyethylene glycol 3350 (Miralax) As directed by gastroenterology department at [facility] 238 grams PO ONCE 238 grams 0RF Z12.11 TODAY'S VISIT Patient is here today for follow-up and to discuss going for colonoscopy. Will send a message to surgical schedule to bulk patient and will order the procedure. Patient will go for colonoscopy only as she has not had acid reflux since last time we saw her in the office. Symptoms have been suppressed with diet. Patient reports that now that she is moving her bowels better she has been feeling better. Patient takes Dulcolax every night before bedtime. 1-2 bowel movements daily. Denies melena, hematochezia, unintentional weight loss or ribbon like stools. Patient denies any dyspepsia, dysphagia or odynophagia. Denies any issues with anesthesia in the past. No history of sleep apnea. Not on any anticoagulation medication. Patient denies any cardiac or respiratory symptoms [facility] Medical History Hyperglycemia Lower back pain Paresthesia and pain of both upper extremities Normal Pap smear Mammogram normal Varicose veins of both lower extremities Annual physical exam Normal colonoscopy Asthma HTN (hypertension) Varicosities of leg Surgical History Hx of colonoscopy History of bilateral tubal ligation Hx of cholecystectomy Family History Father Afib HTN (hypertension) History of heart attack Hyperlipidemia Arthritis Mother Lung cancer Son No problems noted. Son No problems noted. Daughter No problems noted. Daughter No problems noted. Social History Housing: Apartment Alcohol intake: never Patient Tobacco Use Status: Never used Tobacco e-Cigarette/Vaping Use: Never Used service: No Current occupational status: employed Cognitive needs: No Hearing needs: No Vision needs: Yes Review of Systems Const Denies weight gain and Denies weight loss ENT Reports no additional complaints, Denies dysphagia and Denies odynophagia Card Reports no additional complaints Resp Reports no additional complaints GI Denies abdominal pain, Denies belching, Denies melena, Denies bloating, Denies change in bowel habits, Reports constipation (Improved), Denies dysphagia, Denies excessive flatus, Denies dyspepsia, Denies heartburn, Denies diarrhea, Denies loose stools, Denies nausea, Denies odynophagia and Denies vomiting Musc Reports no additional complaints Neuro Reports no additional complaints Psych Reports no additional complaints Endo Reports no additional complaints Physical Exam Vital Signs: Last Vital Signs Pulse 60 09/04/25 10:49 BP 128/92 H 09/04/25 10:49 Pulse Ox 98 09/04/25 10:49 Oxygen Delivery Method Room Air 09/04/25 10:49 BMI result Body Mass Index 36.7 Const General: healthy appearing, no acute distress and well developed Nutritional Appearance: well nourished Orientation/consciousness: patient oriented x3 Resp Effort & Inspection: normal respiratory effort, able to speak in complete sentences, no tracheal deviation and symmetric chest movement Auscultation: clear to auscultation bilaterally Cardio Rate: regular rate GI Inspection: Yes normal to inspection, No distended and Yes obesity Palpation (GI): Soft to palpation, not firm, nontender and No hepatosplenomegaly present Auscultation: normal bowel sounds General: Yes no CVA tenderness Back/Spine/Pelvis Back: no CVA tenderness Skin General skin exam: elasticity normal, turgor normal and dry skin Neuro General: patient oriented x3 Psych Appearance: grossly normal Mental Status: mental status grossly normal Assessment & Plan Assessment & Plan (1) Normal colonoscopy: Comment: at 52 Category: Medical (2) Encounter for screening for malignant neoplasm of colon: Code(s): Z12.11 - Encounter for screening for malignant neoplasm of colon Plan Patient will continue taking Dulcolax daily. Increase fluid intake and activity to promote bowel motility. What to expect before during and after procedure discussed with patient. Stressed the importance of good bowel prep and clear liquid diet day before procedure. Patient will follow-up with us after the procedure. Patient is agreeable to plan plan of care and verbalizes understanding of instructions. She was given the opportunity to ask questions and all questions answered. Thank you for allowing me to participate in her care Orders: Referrals GI Procedure Notification Z12.11 - Encounter for screening for malignant neoplasm of colon Coding Level of Care Code Est Pt Level 3 (20777) Diagnoses Normal colonoscopy Encounter for screening for malignant neoplasm of colon Z12.11 Time Spent (min) 30 Comment 20 minutes spent with patient and additional 10 minutes spent reviewing her records
[2025-09-04 10:49] VITALS: BP 128/92; PULSE 60; O2SAT 98; BMI 36.7
--- OUTSIDE RECORDS SUMMARY | 2025-09-04 12:42 | XMS_ITS | Clinical Summary ---
[facility] Address [address] [place] [address] Care Team Providers Care Ash Kier Boiler Name Role Phone Unavailable Primary Care Provider [...] Father Alive htn high choles terol cad/ OR (70s) Maternal Grandfather Maternal Grandmother Mother Alive [...] Last Done Comments Breast Cancer Screening 1962 Colorectal Cancer Screening: Colonoscopy 1962 DTaP,Tdap,and Td Vaccines (1 - Tdap) 1981 Cervical Cancer Screening: P ap Smear 1983 Pneumococcal Vaccine: 50+ Ye ars (1 of 1 - PCV) 2012 Zoster Vaccines (1 of 2) 2012 HIV Screening 10/04/2022 Hepatitis C Screening 10/04/2022 Social Influencers of Health Screening 10/04/2022 Depression Screening 11/01/2024 COVID-19 Vaccine (1 - 2023-2 5 season) 2025 Influenza Vaccine (#1) 2025 RSV Immunization Adult [...]
== END 2025-09-04 12:10 | disposition home or self-care (01) ==
LOC: HO.HGI 10:42
PROVIDERS: PCP Internal Medicine; Visit Provider Nurse Practitioner Family
DX: Z01.818 Encounter for other preprocedural examination (principal); Z12.11 Encounter for screening for malignant neoplasm of colon
CPT/HCPCS: 99213

== ENCOUNTER → 2025-09-04 10:42 | Outpatient (BNVA) | payer OTHER, SELFPAY | PROVIDERS: PCP Internal Medicine; Visit Provider Nurse Practitioner Family | DX: Z01.818 Encounter for other preprocedural examination (principal); Z12.11 Encounter for screening for malignant neoplasm of colon; K21.9 Gastro-esophageal reflux disease without esophagitis; K59.04 Chronic idiopathic constipation | CPT/HCPCS: 99212 ==

== ENCOUNTER 2025-10-17 09:46 | Outpatient (REF) | payer OTHER, SELFPAY ==
--- NOTE | ~2025-10-17 | XR_ITS ---
EXAMINATION: XR FINGER, LEFT CLINICAL INFORMATION: M79.645 - Pain in left finger(s) COMPARISON: None available. TECHNIQUE: Three views of the left second digit. FINDINGS: No fracture, dislocation, or suspicious bone lesion. Normal bone mineralization. Normal alignment. Joint spaces are preserved. No significant arthropathy. There is mild soft tissue swelling of the second digit. XR/XR finger LT min 2V IMPRESSION: 1. No acute fractures of the second digit identified. Mild soft tissue swelling. Electronically signed by: Alhaji Hua MD 10/17/2025 11:04 AM [place]
== END 2025-10-17 09:47 | disposition home or self-care (01) ==
LOC: HO.HMGCX 09:46
PROVIDERS: PCP Internal Medicine; Visit Provider Physician Assistant Medical
DX: M79.645 Pain in left finger(s) (principal)
CPT/HCPCS: 29130; 73140; 99212

== ENCOUNTER 2025-10-17 09:46 | Outpatient (AMB) | payer OTHER, SELFPAY ==
--- NOTE | 2025-10-17 10:11 | MHC.OFFWIV ---
Intake Vital Signs 10/17/25 10:13 Height 5 ft 3 in Weight 209 lb BMI 37.0 BP 152/90 H Blood Pressure Location Rt brachial Position Sitting Pulse 63 Pulse Source Pulse Oximeter Temp 97.8 F Temp Source Oral Pulse Oximetry (%) 98 Oxygen Delivery Method Room Air Intake Visit Reasons: EP-lt hand pain & swollen Intake Note: pt presents with left 2nd finger pain/swelling that started 3 days ago Patient Tobacco Use Status: Never used Tobacco Allergies morphine Allergy (Unknown, Verified 10/17/25 10:14) Hives penicillin G Allergy (Unknown, Verified 10/17/25 10:14) Hives IV dye Allergy (Unknown, Uncoded 10/17/25 10:14) swelling Do you need a note to return to daycare/school/sports/work: No HPI HPI Comments History of Present Illness Details History of Present Illness - The patient is a 65 year old female presenting with a chief complaint of left 2nd finger pain and swelling for the last three to four days. - The symptoms reportedly began on Wednesday with finger numbness, and the pain became stronger on Wednesday. - She cannot recall any injury to the finger, and she reports that movement causes pain. - She also notes some pain in the hand about a month ago. - The patient has a history of slight arthritis and does not take any medication for it. - She denies a known history of gout and does not drink alcohol. - She is right handed. - She denies nodules, wrist pain, elbow pain, or arm pain. Physical Exam General: Cooperative, healthy appearing, comfortable, no acute distress and well developed Orientation: Patient oriented x3 Respiratory: Normal respiratory effort and able to speak in complete sentences. Clear to auscultation bilaterally Cardiovascular: Regular rate and rhythm. Normal S1 and S2. Pulses are 2+ on the UE bilaterally. Skin: No rashes or lesions noted. Slight erythema noted. No streaking noted. Neuro: Sensation is intact. Extremities: Swelling noted on the left 2nd MCP joint and left 2nd finger. TTP of the left 2nd MCP joint on the palmar aspect. Flexion and extension of the left 2nd finger at the DIP, PIP, and MCP is intact. FROM of the left wrist. FROM of the left elbow. 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 Patient was informed and verbally consented to the use of an ambient scribe for clinic note documentation during this visit. [facility] Medical History Hyperglycemia Lower back pain Paresthesia and pain of both upper extremities Normal Pap smear Mammogram normal Varicose veins of both lower extremities Annual physical exam Normal colonoscopy Asthma HTN (hypertension) Varicosities of leg Surgical History Hx of colonoscopy History of bilateral tubal ligation Hx of cholecystectomy Family History Father Afib HTN (hypertension) History of heart attack Hyperlipidemia Arthritis Mother Lung cancer Son No problems noted. Son No problems noted. Daughter No problems noted. Daughter No problems noted. Social History Housing: Apartment Alcohol intake: never Patient Tobacco Use Status: Never used Tobacco e-Cigarette/Vaping Use: Never Used service: No Current occupational status: employed Cognitive needs: No Hearing needs: No Vision needs: Yes Review of Systems Const All systems reviewed & are unremarkable except as noted in HPI and below Physical Exam Vital Signs: Last Vital Signs Temp 97.8 F 10/17/25 10:13 Pulse 63 10/17/25 10:13 BP 152/90 H 10/17/25 10:13 Pulse Ox 98 10/17/25 10:13 Oxygen Delivery Method Room Air 10/17/25 10:13 BMI result Body Mass Index 37.0 Results Reviewed Results Reviewed: will review the xray in the office Assessment & Plan Assessment & Plan (1) Finger pain, left: Code(s): M79.645 - Pain in left finger(s) Plan Most likely sprain vs tendonitis vs gout vs arthritis Plan - The pain is suspected to be inflammatory, possibly related to her history of arthritis or tendon inflammation from swelling. - An X-ray of the finger was ordered to assess for any underlying bony abnormalities. - Prescribed a five-day course of prednisone. - Prescribed naproxen to be taken twice a day for inflammation. - A finger splint will be applied to immobilize the joint and reduce pain on movement. - will call with the results - follow up with PCP Orders: Orders XR finger LT min 2V Today M79.645 - Pain in left finger(s) Medications: New naproxen 500 mg PO Q12H PRN 20 tabs 0RF pain 7 days prednisone 40 mg (2 x 20 mg) PO DAILY 10 tabs 0RF 5 days Coding Level of Care Code Est Pt Level 4 (66452) Diagnoses Finger pain, left M79.645
[2025-10-17 10:13] VITALS: BP 152/90; PULSE 63; TEMP 36.6; O2SAT 98; BMI 37.0
--- OUTSIDE RECORDS SUMMARY | 2025-10-17 11:27 | XMS_ITS | Clinical Summary ---
Author Organization [facility] it Address [address] [place] [address] Care Team Providers Care Methods And Procedures Analyst Name Role Phone Unavailable Primary Care Provider [...] Father Alive htn high choles terol cad/ [place] (70s) Maternal Grandfather Maternal Grandmother Mother Alive [...] on file Sexual Orientation Not on file Plan of Treatment Health Maintenance Due Date [...] Depression Screening 11/01/2024 COVID-19 Vaccine (1 - 2024-2 6 season) 2025 Influenza Vaccine (#1) 2025 RSV [...]
== END 2025-10-17 11:23 | disposition home or self-care (01) ==
PROVIDERS: PCP Internal Medicine; Visit Provider Physician Assistant Medical
DX: M79.645 Pain in left finger(s) (principal)

== ENCOUNTER → 2025-10-17 10:53 | Outpatient (BNV) | payer OTHER, SELFPAY | PROVIDERS: PCP Internal Medicine; Visit Provider Radiology Diagnostic Radiology | DX: M79.89 Other specified soft tissue disorders (principal) | CPT/HCPCS: 73140 ==